=== PATIENT | female | born 1955 | race Caucasian/White ===

== ENCOUNTER → 2017-10-26 08:47 | Outpatient (CLI) | payer BC, SELFPAY | PROVIDERS: Family Provider Family Medicine; PCP Family Medicine; Visit Provider Family Medicine | DX: R69 Illness, unspecified (principal) ==

== ENCOUNTER → 2018-06-19 10:17 | Outpatient (CLI) | payer MEDICARE, OTHER, SELFPAY ==
[2018-06-19 09:47] VITALS: BMI 34.3
[2018-06-19 12:19] LABS: AST(SGOT) 23 U/L (15-37); Alanine Aminotransfer ALT/SGPT 37 U/L (13-56); Albumin, Serum 3.8 g/dL (3.2-5.0); Alkaline Phosphatase 53 U/L (45-117); Bilirubin, Direct 0.29 mg/dL (0.00-0.30); Cholesterol 134 mg/dL (200); Globulin 3.7 g/dL (2.2-4.2); High Density Lipoprotein 53 mg/dL; Protein, Total 7.5 g/dL (6.4-8.2); Triglycerides 183 mg/dL; Very Low Density Lipoprotein 37 mg/dL (5-40)
--- OUTSIDE RECORDS SUMMARY | 2018-08-05 05:15 | XMS RPT_ITS ---
:1955 External Reference #:[id number] Author Organization OHIP Care Team Providers Name Role Phone Renetta Russo Attending Unavailable Thien Baeza Referring Unavailable Renetta Russo Attending Unavailable Renetta Russo Referring Unavailable Thien Baeza Primary Care Unavailable Thien Baeza Attending Unavailable Thien Baeza Primary Care Unavailable Renetta Russo Attending Unavailable Thien Baeza Referring Unavailable Thien Baeza Primary Care Unavailable PROBLEMS PROBLEMS DATE TYPE CONDITION / CODE ATTENDING STATUS SOURCE 06/30/2018 Unknown I25.10 - Karan, Active Joshua Atherosclerotic heart Renetta Fonseca [facility] disease [facility] coronary artery Repository without angina pectoris / I25.10(ICD-10) 06/30/2018 Unknown I10 - Essential Karan, Active [place] (primary) Rneetta Fonseca [facility] hypertension / Hospital I10(ICD-10) Repository 06/30/2018 Unknown E78.00 - Pure Karan, Active [place] hypercholesterolemia, Renetta Fonseca [facility] unspecified / Hospital E78.00(ICD-10) Repository 12/30/2017 Unknown R40.0 - Somnolence / Russo, Active [place] R40.0(ICD-10) [facility] Repository 12/30/2017 Unknown R53.83 - Other Karan, Active Joshua fatigue / Renetta [facility] R53.83(ICD-10) Hospital Repository 12/30/2017 Unknown E78.5 - Karan, Active Joshua Hyperlipidemia, Renetta [facility] unspecified / Hospital E78.5(ICD-10) Repository PROCEDURES PROCEDURES No Procedure Records FoundRESULTS RESULTS LIVER PROFILE Collected: 06/19/2018 Status: F Source: [place] 10:29 AM [facility] REPOSITORY TYPE CODE TESTS RESULT OUT OF RANGE REFERENCE UNITS LAB L501.1500 6.4-8.2 g/dL Normal T PROT 7.5 LAB L501.1800 3.2-5.0 g/dL Normal ALB 3.8 LAB L501.1950 2.2-4.2 g/dL Normal GLOB 3.7 LAB L501.4100 15-37 U/L Normal AST 23 LAB L501.4305 45-117 U/L Normal ALK P 53 LAB L501.4405 13-56 U/L Normal ALT 37 LAB L501.4600 0.20-1.00 mg/dL High T BILI 1.90 LAB L501.4700 0.00-0.30 mg/dL Normal D BILI 0.29 Performed By: #### L500.3400, L500.4100 #### [facility] [address] [place], [address] LIPID PROFILE Collected: 06/19/2018 Status: F Source: [place] 10:29 [facility] REPOSITORY TYPE CODE TESTS RESULT OUT OF RANGE REFERENCE UNITS LAB L501.4900 200 mg/dL Normal CHOL 134 Result Comment: <200 mg/dL Desirable 200-240 mg/dL Borderline >240 mg/dL High Risk LAB L501.5000 mg/dL Normal TRIG 183 Result Comment: The drugs N-Acetylcysteine and Metamizole may falsely depress this assay. Serum Triglycerides Reference Interval Normal <150 mg/dL Borderline high 150 - 199 mg/dL High 200 - 499 mg/dL Very High > or = 500 mg/dL LAB L501.6400 mg/dL Normal HDL 53 Result Comment: The drugs N-Acetylcysteine and Metamizole may falsely depress this assay. Reference Range HDL <40 mg/dL Low HDL Cholesterol HDL >or= 60 mg/dL High HDL Cholesterol LAB L501.6500 0-130 mg/dL Normal LDL 44 LAB L501.6600 5-40 mg/dL Normal VLDL 37 Performed By: #### L500.3400, L500.4100 #### [facility] [address] [place], [address] CARDIOLOGY VISIT Observed: 06/19/2018 Status: F Source: [place] REPORT 10:14 AM [facility] REPOSITORY [facility] [address] [place] [address] OFFICE VISIT Date of Service: 06/19/18 MR#: [id number] Acct: [id number] Name: TERESE TIRADO Rep #: [id number] : 1955 Provider: Renetta Russo Age/Sex: 63/F Location: [facility] Status: Signed HPI HPI Details: TERESE TIRADO, is a 63 F who presents to the office today for a cardiovascular follow-up. In January 2017 she was noted to have a non-ST myocardial infarction and underwent bypass surgery at [facility]. She had an CONNER to the LAD, SVG to the diagonal branch 1, SVG Y graft to the OM1 and OM 2. In February 2017 she presented back to the hospital with unstable angina and underwent stenting of her mid right posterior lateral branch. She has retired in March. From a cardiac standpoint, patient is doing well. She does not have any chest discomfort/heaviness/tightness. Her exercise tolerance is stable for her age. She does not have any worsening symptoms of shortness of breath. She does not have any orthopnea. She denies PND. She does not have any symptoms of congestive heart failure. She does not have any palpitations that she is aware of. She does not have any lightheadedness or dizziness. She does not have any near-syncope or syncope. She does not have any lower extremity edema. She does not have any symptoms of claudication. Intake Vital Signs06/19/18 Height 5 ft 3 in 06/19/18 Weight: 194 lb 06/19/18 Body Mass Index (BMI) 34.3 06/19/18 Blood Pressure 134/72 H Intake Visit Reasons: 6 M FU Patient Service Technician Pst Required: No Accompanied by: None Is patient in pain?: No Allergies codeine Adverse Reaction (Verified 06/19/18 09:49) Other Medications Citalopram Hydrobromide [Citalopram HBr] 20 mg PO DAILY 02/23/17 [History Confirmed 06/19/18] Insulin Detemir [Levemir FlexPen] 15 units SQ DAILY 30 Days 02/26/17 [Rx Confirmed 06/19/18] Insulin Lispro [Humalog KwikPen] 5 units SQ ACHS 30 Days 02/26/17 [Rx Confirmed 06/19/18] aspirin 81 mg tablet,delayed release 81 mg PO DAILY@0800 #90 tab 04/08/18 [Rx Confirmed 06/19/18] atorvastatin 80 mg tablet 80 mg PO QHS #90 tab 04/08/18 [Rx Confirmed 06/19/18] clopidogrel 75 mg tablet 75 mg PO QDAY #90 tab 04/08/18 [Rx Confirmed 06/19/18] metoprolol tartrate 50 mg tablet 50 mg PO BID #180 tab 04/08/18 [Rx Confirmed 06/19/18] ramipril 2.5 mg capsule 2.5 mg PO DAILY #90 cap 04/08/18 [Rx Confirmed 06/19/18] magnesium oxide 400 mg capsule 400 mg PO DAILY cap 06/19/18 [History Confirmed 06/19/18] PFSH Medical History Chest pain, unspecified (Chronic) HTN (hypertension) (Chronic) HLD (hyperlipidemia) (Chronic) 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 (Chronic) Surgical History History of fusion of cervical spine (Resolved 1992) History of hysterectomy (Resolved 1991) History of knee replacement (Resolved 2005) Hx of CABG (Chronic) Family History Brother CAD (coronary artery disease) Brother , age 50 CAD (coronary artery disease) Myocardial infarction Social History Smoking Status: Never smoker alcohol intake: current alcohol intake frequency: holidays/special occasions only Alcohol type: wine substance use type: does not use caffeine: Yes Type: carbonated beverages Number of servings: 1 what type of physical activity do you participate in: swimming frequency: 1-2 times per week ROS Const Const: Negative for weakness, fatigue, fever(s) or headache(s) Eyes Eyes: Negative for blind spots, loss of peripheral vision or transient loss of vision ENT ENT: Negative for headache(s), dizziness, tinnitus or Nosebleed/epistaxis Cardio Chest Pain: No Palpitations: No Edema: None Muscle aches with walking: None Resp Respiratory: Negative for SOB with activity, SOB at rest, SOB orthopnea\SOB lying down or Cough GI GI: Negative nausea, vomiting, heartburn or vomiting blood/hematemesis : Negative for hematuria Musc Musc: Negative for muscle aches/ myalgia Neuro Neuro: Negative for weakness, headache(s), dizziness, near syncope, syncope, lightheadedness or orthostatic symptoms Aravind Hematologic/Lymphatic: Negative for easy bleeding Endo Endo: Negative for fatigue Cardiology Exam Const Appearance: cooperative, no acute distress and well developed Orientation: alert, awake and oriented x3 Head Head: normocephalic and atraumatic Mouth: moist mucous membranes Eyes General: appearance normal, both eyes and all related structures Conjunctivae: conjunctivae normal Pupils: PERRL EOM: EOM intact bilaterally Neck Neck: normal visual inspection, no lymphadenopathy and no JVD Carotids: Negative bruit Neck Mass: Negative Neck mass Chest Chest inspection: normal inspection of the chest, symmetric chest movement and midline sternotomy incision Auscultation: Bilateral: Clear to Auscultation Cardio Palpation: normal PMI Rate: regular rate Rhythm: regular rhythm Heart sounds: S1 normal and S2 normal; negative rub, gallop or murmur GI GI: normal to inspection, soft, no hepatosplenomegaly and bowel sounds present; negative tender Neuro General: alert, awake, oriented x3, CN's II-XI intact bilaterally and moves all extremities Extremities Pulses: Normal: Right Posterior Tibial Pulse, Left Posterior Tibial Pulse, Right Radial Pulse, Left Radial Pulse Lower Extremity Edema: None: Bilateral Psych Psychological: normal affect Assessment AND Plan 1. Atherosclerosis of [place]iiq coronary artery of [place] heart without angina pectoris I25.10 Plan Stable, from a cardiac standpoint patient does not have any symptoms of angina. We recommend that they continue with current aggressive medical management and risk factor modification. Orders Orders: 2. Essential hypertension I10 Plan Adequately controlled on current medications. Will not make any adjustments. Orders Orders: 3. Pure hypercholesterolemia E78.00 Plan Patient is due to have her lipids checked in the near future. Will adjust accordingly. Orders Orders: Plan Detail Additional Comments Thank you for allowing us to participate in patient's plan of care, if you have any questions please do not hesitate to call. This note was generated using a voice recognition system and there may be incorrect words, spelling or punctuation errors that were not noted when reviewing the office note prior to saving. Follow Up 6 Months (PFM) Coding Level of Care Code Off vis,est,level 3 Diagnoses Atherosclerosis of alutiiq coronary artery of al[place]ii[place] heart without angina pectoris I25.10 [place] vs. transplanted heart: [place]iiq heart Essential hypertension I10 Hypertension type: essential hypertension Pure hypercholesterolemia E78.00 Hyperlipidemia type: pure hypercholesterolemia Coding Level of Care Code Off vis,est,level 3 Diagnoses Atherosclerosis of [place]ii[place] coronary artery of [place] heart without angina pectoris I25.10 [place] vs. transplanted heart: [place] heart Essential hypertension I10 Hypertension type: essential hypertension Pure hypercholesterolemia E78.00 Hyperlipidemia type: pure hypercholesterolemia 06/19/18 1014 <Electronically signed by Renetta FORBES> Date Renetta FORBES Cosign Signature: Date (if applicable) CC: Thien Baeza MD CARDIOLOGY VISIT Observed: 01/03/2018 Status: F Source: [place] REPORT 4:13 PM [facility] REPOSITORY [place] [address] [place] [address] OFFICE VISIT Date of Service: 12/30/17 MR#: [id number] Acct: [id number] Name: TERESE TIRADO Rep #: [id number] : 1955 Provider: Renetta Russo Age/Sex: 62/F Location: [facility] Status: Signed HPI HPI Details: TERESE TIRADO, is a 62 F who presents to the office today for cardiovascular follow-up. In January 2017 she was noted to have a non-ST myocardial infarction and underwent bypass surgery at [facility]. She had an CONNER to the LAD, SVG to the diagonal branch 1, SVG Y graft to the OM1 and OM 2. In February 2017 she presented back to the hospital with unstable angina and underwent stenting of her mid right posterior lateral branch. Overall patient is to been doing very well. She did complete cardiac rehab. She does not have any chest discomfort, heaviness or tightness. She does not have any worsening shortness of breath. She does not have any lightheadedness or dizziness. She does not have any palpitations. She does not have any pain in her legs when she walks. She is finding that is very difficult to exercise when she gets home from work because of extreme fatigue. She does have daytime somnolence. She questions whether not she needs to have sleep study done. She is getting ready to retire in March 2018. STOP-BANG Assessment: 1. Do you snore? [n] 2. Are you frequently tired during the day? [y] 3. Have you been observed gasping or choking while asleep? [n] 4. Do you have high blood pressure? [y] 5. BMI - greater than 35kg/m2? [n] 6. Age - over 50 years old? [y] 7. Neck Circumference - greater than 37 cm for females or 40 cm for males? [n] 8. Gender - male? [n] Total STOP-BANG score = [3] which indicates [y] risk for obstructive sleep apnea (yes to 3 or more questions = high risk of sleep apnea). Intake Vital Signs12/30/17 Height 5 ft 3 in 12/30/17 Weight: 194 lb 12/30/17 Body Mass Index (BMI) 34.3 Intake Visit Reasons: 6 M FU Accompanied by: Is patient in pain?: No Allergies codeine Adverse Reaction (Verified 06/28/17 17:20) Other Medications Citalopram Hydrobromide [Citalopram HBr] 20 mg PO DAILY 02/23/17 [History Confirmed 12/30/17] Aspirin E.C. [Ecotrin] 81 mg PO DAILY@0800 tab 02/26/17 [Rx Confirmed 12/30/17] Insulin Detemir [Levemir FlexPen] 15 units SQ DAILY 30 Days 02/26/17 [Rx Confirmed 12/30/17] Insulin Lispro [Humalog KwikPen] 5 units SQ ACHS 30 Days 02/26/17 [Rx Confirmed 12/30/17] atorvastatin 80 mg tablet 80 mg PO QHS #90 tab 12/30/17 [Rx Confirmed 12/30/17] clopidogrel 75 mg tablet 75 mg PO QDAY #90 tab 12/30/17 [Rx Confirmed 12/30/17] metoprolol tartrate 50 mg tablet 50 mg PO BID #180 tab 12/30/17 [Rx Confirmed 12/30/17] ramipril 2.5 mg capsule 2.5 mg PO DAILY #90 cap 12/30/17 [Rx Confirmed 12/30/17] PFSH Medical History Chest pain, unspecified (Chronic) HTN (hypertension) (Chronic) HLD (hyperlipidemia) (Chronic) 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 (Chronic) Surgical History Hx of CABG (Chronic) Family History Brother CAD (coronary artery disease) Social History Smoking Status: Never smoker alcohol intake: current alcohol intake frequency: holidays/special occasions only Alcohol type: wine substance use type: does not use what type of physical activity do you participate in: swimming frequency: 1-2 times per week ROS Const Const: Positive for fatigue and daytime sleepiness; negative for weakness, fever(s) or headache(s) Eyes Eyes: Negative for blind spots, loss of peripheral vision or transient loss of vision ENT ENT: Negative for headache(s), dizziness, tinnitus or Nosebleed/epistaxis Cardio Chest Pain: No Palpitations: No Edema: None Muscle aches with walking: None Resp Respiratory: Negative for SOB with activity, SOB at rest, SOB orthopnea\SOB lying down or Cough GI GI: Negative nausea, vomiting, heartburn or vomiting blood/hematemesis : Negative for hematuria Musc Musc: Negative for muscle aches/ myalgia Neuro Neuro: Negative for weakness, headache(s), dizziness, near syncope, syncope, lightheadedness or orthostatic symptoms Aravind Hematologic/Lymphatic: Negative for easy bleeding Endo Endo: Positive for fatigue Cardiology Exam Const Appearance: cooperative, no acute distress and well developed Orientation: alert, awake and oriented x3 Head Head: normocephalic and atraumatic Mouth: moist mucous membranes Eyes General: appearance normal, both eyes and all related structures Conjunctivae: conjunctivae normal Pupils: PERRL EOM: EOM intact bilaterally Neck Neck: normal visual inspection, no lymphadenopathy and no JVD Carotids: Negative bruit Neck Mass: Negative Neck mass Chest Chest inspection: normal inspection of the chest, symmetric chest movement and midline sternotomy incision Auscultation: Bilateral: Clear to Auscultation Cardio Palpation: normal PMI Rate: regular rate Rhythm: regular rhythm Heart sounds: S1 normal and S2 normal; negative rub, gallop or murmur GI GI: normal to inspection, soft, no hepatosplenomegaly and bowel sounds present; negative tender Neuro General: alert, awake, oriented x3, CN's II-XI intact bilaterally and moves all extremities Extremities Pulses: Normal: Right Posterior Tibial Pulse, Left Posterior Tibial Pulse, Right Radial Pulse, Left Radial Pulse Lower Extremity Edema: None: Bilateral Psych Psychological: normal affect Supplemental Info Echocardiogram in 2017 demonstrates an estimated ejection fraction of 60%. Trivial mitral valve insufficiency. Mild tricuspid insufficiency. Moderate focal aortic valve calcification. Trivial pulmonic insufficiency. RVSP 24 mmHg. Assessment AND Plan 1. Atherosclerosis of alutiiq coronary artery of alutiiq heart without angina pectoris I25.10 LEIDY Vega Stable, from a cardiac standpoint patient does not have any symptoms of angina. We recommend that they continue with current aggressive medical management and risk factor modification. Orders Orders: 2. Essential hypertension I10 LEIDY Vega Adequately controlled on current medications. Will not make any adjustments. Orders Orders: 3. Pure hypercholesterolemia E78.00 LEIDY Vega Patient is due to have her lipids checked in the near future. Will adjust accordingly. 4. Daytime somnolence R40.0 LEIDY Vega Patient does complain of fatigue and daytime somnolence. Her stop bang score is 3. Would like to obtain a sleep study to further evaluate for underlying sleep apnea. Orders Orders: 5. Fatigue, unspecified type R53.83 LEIDY Vega Will obtain labs to further evaluate. Orders Orders: Plan Detail Other Orders Orders: Other Medications New: Discontinued: Additional Comments - LEIDY Haines The above patient was discussed with Dr. Joshua, he agrees with plan of care. Thank you for allowing us to participate in patient's plan of care, if you have any questions please do not hesitate to call. This note was generated using a voice recognition system and there may be incorrect words, spelling or punctuation errors that were not noted when reviewing the office note prior to saving. 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 transplanted heart: [place] heart Essential hypertension I10 Hypertension type: essential hypertension Pure hypercholesterolemia E78.00 Hyperlipidemia type: pure hypercholesterolemia Daytime somnolence R40.0 Fatigue, unspecified type R53.83 Fatigue type: unspecified Coding Level of Care Code Off vis,est,level 3 Diagnoses Atherosclerosis of al[place]iiq coronary artery of al[place] heart without angina pectoris I25.10 [place] vs. transplanted heart: [place] heart Essential hypertension I10 Hypertension type: essential hypertension Pure hypercholesterolemia E78.00 Hyperlipidemia type: pure hypercholesterolemia Daytime somnolence R40.0 Fatigue, unspecified type R53.83 Fatigue type: unspecified 12/31/17 1655 <Electronically signed by Renetta FORBES> Date Renetta FORBES 01/03/18 1613<Electronically signed by Ramiro Joshua MD> Cosigner Signature: Date (if applicable) Ramiro Joshua MD CC: Thien Baeza MD ALLERGIES ALLERGIES DATE TYPE / CODE NAME / CODE REACTION SEVERITY SOURCE 06/19/2018 Drug codeine/F006 Other Unknown [facility] Allergy/4160 [id number](RXNOR [facility] 58258(SNOMED M) Repository CT) ENCOUNTERS ENCOUNTERS ADMIT/DISCHARGE ACCOUNT ADMITTING ENCOUNTER LOCATION SOURCE NUMBER CLASS 06/19/2018 [id number] Ambulatory [place] [facility] ing:LAB Repository 06/19/2018/ [id number] Ambulatory BMSBuilding:B [place] [address] [facility] Repository 12/30/2017/ [id number] Ambulatory BMSBuilding:B [place] [address] [facility] Repository 10/26/2017 [id number] Ambulatory [place] Joshua 4 [facility] ing:LAB Repository PAYERS PAYERS ENCOUNTER GUARANTOR PAYER SUBSCRIBER SOURCE 06/19/2018 TERESE D Primary TERESE D [place] [id number] APPLE Insurance:MEDICARE MILLERDOB: [facility] PART A [facility] [id number] Repository [id number]: 330 [id number] [phone] () Date:2018-06-19 06/19/2018 Secondary TERESE D Joshua Insurance:AARPPolicy MILLERDOB: [facility] Number: [id number] Hospital [id number] Repository Date:[id number], [place] [address]WT: 06/19/2018 Tertiary NOT GIVENUNK [place] Insurance:SELF PAY [facility]: Effective Repository Date:2018-06-19 06/19/2018 TERESE D Primary TERESE D [place] [id number] APPLE Insurance:MEDICARE MILLERDOB: [facility] PART A [facility] [id number] Number: Repository [id number]: 330 [id number] [phone] () Date:2017-12-30 06/19/2018 Secondary TERESE D [place] Insurance:AARPPolicy MILLERDOB: [facility] Number: [id number] Hospital [id number] Repository Date:[id number], [place] [address]FZ: 06/19/2018 Tertiary NOT GIVENUNK Joshua Insurance:SELF PAY [facility] Number: Effective Repository Date:2018-06-19 12/30/2017 TERESE D Primary TERESE D Joshua [id number] APPLE Insurance:ANTHEMPolic MILLERDOB: Community [address] Number: [id number], [place] [id number] Repository [address]Rip: (330) Date:0407-08-70[phone] () [id number] [place] [address]KR: 12/30/2017 Secondary NOT GIVENUNK Joshua Insurance:SELF PAY [facility] Number: Effective Repository Date:2017-12-30 10/26/2017 TERESE D Primary TERESE D Joshua [id number] APPLE Insurance:ANTHEMPolic MILLERDOB: Community [address] Number: [id number], [place] [id number] Repository 118[address]Nvk: Date:4562-70-11[phone] [id number], [place] -7 () [address]BA: 10/26/2017 Secondary NOT GIVENUNK [place] Insurance:SELF PAY [facility] Number: Effective Repository Date:2017-10-26
== END ==
PROVIDERS: Family Provider Family Medicine; PCP Family Medicine; Referring Provider Physician Assistant Medical; Visit Provider Physician Assistant Medical
DX: I25.10 Atherosclerotic heart disease of native coronary artery without angina pectoris (principal); I10 Essential (primary) hypertension; E78.00 Pure hypercholesterolemia, unspecified
CPT/HCPCS: 36415; 80061; 80076

== ENCOUNTER 2019-07-15 08:20 | Day surgery (SDC) | payer MEDICARE, SELFPAY ==
[2019-06-26 08:32] VITALS: BMI 34.0
--- NOTE | 2019-06-26 08:44 | HP_ITS ---
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 Is patient in pain?: No Allergies codeine Adverse Reaction (Verified 06/26/19 08:31) Other Medications Citalopram Hydrobromide [Citalopram HBr] 20 mg PO DAILY 02/23/17 [History Confirmed 06/26/19] Insulin Detemir [Levemir FlexPen] 15 units SQ DAILY 30 Days 02/26/17 [Rx Confirmed 06/26/19] Insulin Lispro [Humalog KwikPen] 5 units SQ ACHS 30 Days 02/26/17 [Rx Confirmed 06/26/19] aspirin 81 mg tablet,delayed release 81 mg PO DAILY@0800 #90 tab 04/08/18 [Rx Confirmed 06/26/19] atorvastatin 80 mg tablet 80 mg PO QHS #90 tab 04/08/18 [Rx Confirmed 06/26/19] clopidogrel 75 mg tablet 75 mg PO QDAY #90 tab 04/08/18 [Rx Confirmed 06/26/19] metoprolol tartrate 50 mg tablet 50 mg PO BID #180 tab 04/08/18 [Rx Confirmed 06/26/19] ramipril 2.5 mg capsule 2.5 mg PO DAILY #90 cap 04/08/18 [Rx Confirmed 06/26/19] [facility] Medical History Type 2 diabetes mellitus (Chronic) GERD (gastroesophageal reflux disease) (Chronic) History of non-ST elevation myocardial infarction (NSTEMI) (Acute) Pure hypercholesterolemia (Chronic) Presence of stent in coronary artery (Chronic ~02/23/17) Essential hypertension (Chronic) Chest pain, unspecified (Chronic) Atherosclerotic heart disease of [place] coronary artery without angina pectoris (Chronic) Surgical History History of coronary artery bypass surgery (Chronic ~02/05/17) Presence of coronary angioplasty implant and graft (Chronic ~02/23/17) History of fusion of cervical spine (Resolved ~1992) History of hysterectomy (Resolved ~1991) History of knee replacement (Resolved ~2005) Family History (Updated 06/26/19 @ 08:28 by Bibiana Perez) Brother CAD (coronary artery disease) Diabetes High cholesterol Brother , age 50 CAD (coronary artery disease) Myocardial infarction Father CAD (coronary artery disease) Aunt CAD (coronary artery disease) Mother Hypertension Social History (Updated 06/26/19 @ 08:44 by Nicole Fletcher MD) alcohol intake: current alcohol intake frequency: holidays/special occasions only Alcohol type: wine substance use type: does not use caffeine: Yes Type: carbonated beverages Number of servings: 1 what type of physical activity do you participate in: swimming frequency: 1-2 times per week HPI HPI HPI: TERESE TIRADO, is a 64 F who presents to the office today for HPI HPI Surgical H&P: Yes HPI: TERESE TIRADO, is a 64 F who presents to the office today for screening colonoscopy. Patient states she has bowel movements daily denies any blood denies any family history of colon cancer denies any previous colonoscopy. Patient did have a CABG as well as a stent placed in 2017 currently on aspirin Plavix. Patient states she has reflux maybe once or twice a month otherwise denies any abdominal pain. ROS General General: No weight change, fatigue, colon cancer, breast cancer or weakness HEENT HEENT: No difficulty swallowing, eye injury, eye surgery, swollen glands or hoarseness Endo Endocrine: Yes diabetes mellitus; no thyroid disease, thyroid cancer, Hair loss, heat intolerance or cold intolerance Skin Skin: No rash or changing moles Breast Breast: No left breast lump, right breast lump, nipple discharge, breast pain, abnormal mammogram, abnormal US or breast enlargement Musc Musculoskeletal: Yes arthritis; no back problems, rheumatoid arthritis, gout or joint pain Cardio Cardiovascular: Yes high blood pressure, heart attack and heart stent; no murmur, pacemaker, heart disease, atrial fibrillation, palpitations, shortness of breat with exertion or chest pain Psych Psychiatric: Yes anxiety; no depression or hearing voices Resp Respiratory: No shortness of breath, No sleep apnea, No cough, No COPD, No asthma, No emphysema, No wheezing Gastro Gastrointestinal: No abdominal pain, No nausea or vomiting, No diarrhea, No constipation, No blood in stool, No acid reflux, No hemorrhoids, No ulcers, No gallbladder problem, No black,tarry stools Aravind Hematologic: Yes blood thinners, No blood disorders, No bleeding, No anemia, No blood clots Neuro Neurologic: No system reviewed and no additional complaints, except as docu, No as per HPI, No abnormal walking, No abnormal hearing, No abnormal movements, No abnormal speech, No behavioral changes, No burning sensations, No confusion, No seizure-like activity, No unsteadiness, No dizziness, No localized weakness, No frequent falls, No headache(s), No lack of coordination, No loss of vision, No memory loss, No numbness, No other visual disturbances, No radiating pain, No restless legs, No sensory deficit, No fainting, No tingling, No tremor(s), No weakness, No other Exam Const General: cooperative, comfortable, no acute distress Orientation: oriented x3 Chest Breast Palpation: No nipple discharge Resp Effort & Inspection: normal respiratory effort Cardio Rate: regular rate Heart Sounds: no murmurs GI Inspection: non-distended Palpation: soft, no guarding, nontender Assessment & Plan Problems 1. Encounter for screening for malignant neoplasm of colon Z12.11 2. History of coronary artery bypass surgery Z95.1 CABG x4; CONNER to LAD, BRIAN to OM2, (Y fraft off SVG-OM1), SVG to Dg 02/05/2017 3. History of non-ST elevation myocardial infarction (NSTEMI) I25.2 Plan Will discuss with Dr. Tan's office patient able to come off the Plavix prior to the colonoscopy if so we will hold for 5 days and continue aspirin. Otherwise did discuss with patient we could do it on aspirin and Plavix but should be at slightly increased risk of bleeding. Patient also talk with her control valve technician about her diabetic medication for the day of the prep. I have discussed the above with the patient. I have offered the patient colonoscopy for evaluation. I have explained the risks/benefits of the procedure and described the procedure. I have discussed the risks with the patient, including but not limited to: infection, bleeding, perforation of the GI tract requiring emergency surgery, inability to complete the procedure, injury to any internal organs, complications of anesthesia, etc. - the patient understands and agrees to proceed. I have answered all the patient's questions to the patient's satisfaction and the patient has no further questions. The patient has been given instructions for the colon cleansing preparation. One day of clears, MiraLAX to collect split prep. Nicole Fletcher M.D. Pager: [phone] [facility] [address] [place] [address], [address] [place] [address] Office: [phone] Plan Detail Follow Up We will schedule colonoscopy Coding Level of Care Code Off vis,new,level 3 Diagnoses Encounter for screening for malignant neoplasm of colon Z12.11 History of coronary artery bypass surgery Z95.1 History of non-ST elevation myocardial infarction (NSTEMI) I25.2 06/26/19 0844 <Electronically signed by Nicole Jones am, MD> Date _ Nicole Fletcher MD I have re-examined the patient. There are no clinical changes since date of exam.
[2019-07-15] VITALS (7 sets, daily range): BP systolic 106–148; BP diastolic 61–81; PULSE 66–96; RESP 16; TEMP 36.1–37.2; O2SAT 67–99; BMI 34.4
[2019-07-15] MEDS: Lactated Ringers 1,000 ML 100 ML IV (09:03)
[2019-07-15 09:10] LABS: Bedside Glucose 229 mg/dL (70-110)
--- NOTE | 2019-07-15 09:45 | COLBX_PTH ---
PATIENT: TERESE TIRADO LOC: EN U#:[id number] AGE/SX: 64/F ROOM: RE07/15/[address]: Dr. Nicole Fletcher MD : 1955 BED: DIS: 07/15/2019 SPEC #: [id number] RECD: 07/15/19 11:39 STATUS: JENNY ACOSTA #: [id number] MANDA: 07/15/19 09:[address]: Nicole Fletcher DEPT: SURGICAL PATHOLOGY RECD BY: Mohan Moss ENTERED: 07/15/19 13:51 SP TYPE: COLON BX OTHR DR: Dr. Thien Baeza MD Tissues: A - Cecum, NOS B - Descending colon Procedures: Surgery Specimen Level IV HEADER OPERATION: Colonoscopy (MAC) PRE-OP DIAGNOSIS: Screening TISSUE SUBMITTED: A. Cecal polyp biopsy, B. Descending colon polyp biopsy MICROSCOPIC DIAGNOSIS A. Cecal polyp, biopsy: Tubular adenoma. B. Descending colon polyp, biopsy: Tubular adenoma. AM:stefan 07/16/19 MICROSCOPIC DESCRIPTION Slides are reviewed. GROSS DESCRIPTION A - Received in fixative is one container labeled with the patient's name and designated cecal polyp biopsy. The specimen consists of multiple irregular fragments of light argueta soft tissue that in aggregate measure 1 x 0.2 x 0.1 cm. The specimen is totally submitted in one cassette. B - Received in fixative is one container labeled with the patient's name and designated descending colon polyp. The specimen consists of two irregular fragments of light argueta soft tissue that in aggregate measure 0.6 x 0.3 x 0.1 cm. The specimen is totally submitted in one cassette. / SJ:stefan 07/15/19 TC:5 CPT: 39481 x2
--- NOTE | 2019-07-18 12:39 | OP.COLON_ITS ---
Patient Name: Dimple Mckeon Procedure Date: 07/15/2019 9:39 AM Date of : 1955 Age: 64 Procedure: Colonoscopy Indications: Screening for colorectal malignant neoplasm Providers: Nicole Fletcher MD Referring MD: Thien Baeza MD Medicines: Monitored Anesthesia Care Patient Profile: This is a 64 year old female. Last Colonoscopy: none. The patient's first colonoscopy is today. Complications: No immediate complications. Procedure: Pre-Anesthesia Assessment: - Prior to the procedure, a History and Physical was performed, and patient medications and allergies were reviewed. The patient's tolerance of previous anesthesia was also reviewed. The risks and benefits of the procedure and the sedation options and risks were discussed with the patient. All questions were answered, and informed consent was obtained. Prior Anticoagulants: The patient has taken Plavix (clopidogrel), last dose was 5 days prior to procedure. ASA Grade Assessment: III - A patient with severe systemic disease. After reviewing the risks and benefits, the patient was deemed in satisfactory condition to undergo the procedure. After I obtained informed consent, the scope was passed under direct vision. Throughout the procedure, the patient's blood pressure, pulse, and oxygen saturations were monitored continuously. The pediatric colonoscope was introduced through the anus and advanced to the cecum, identified by the appendiceal orifice, ileocecal valve and palpation. The colonoscopy was performed without difficulty. The patient tolerated the procedure well. The quality of the bowel preparation was good. Scope In: 9:57:00 AM Scope Withdrawal Time 0 hours 12 minutes 9 seconds Scope Out: 10:18:40 AM Total Procedure Duration Time 0 hours 21 minutes 40 seconds Findings: The perianal and digital rectal examinations were normal. Three sessile polyps were found in the descending colon and cecum. The polyps were less than 5 mm in size. These polyps were removed with a cold biopsy forceps. Resection and retrieval were complete. Impression: - Three less than 5 mm polyps in the descending colon and in the cecum, removed with a cold biopsy forceps. Resected and retrieved. Recommendation: - Discharge patient to home. - Resume previous diet. - Continue present medications. - Await pathology results. - Repeat colonoscopy in 5 years for surveillance based on pathology results. Procedure Code(s): --- Professional --- 62540, PT, Colonoscopy, flexible; with biopsy, single or multiple Diagnosis Code(s): --- Professional --- Z12.11, Encounter for screening for malignant neoplasm of colon D12.4, Benign neoplasm of descending colon D12.0, Benign neoplasm of cecum CPT copyright 2017 [employer] [place] [employer]. All rights reserved. The codes documented in this report are preliminary and upon latent fingerprint examiner review may be revised to meet current compliance requirements. MD Nicole Hernandez MD 07/15/2019 10:31:58 AM This report has been signed electronically. Number of Addenda: 0 Note Initiated On: 07/15/2019 9:39 AM
== END 2019-07-15 11:03 | disposition home or self-care (01) ==
LOC: EN 08:22 → AC 08:23
PROVIDERS: Family Provider Family Medicine; PCP Family Medicine; Referring Provider Family Medicine; Visit Provider Surgery
PROC: 0DJD8ZZ Inspection of Lower Intestinal Tract, Via Natural or Artificial Opening Endoscopic (ICD-10-PCS; CPT 45378; principal; 2019-07-15 09:40)
DX: Z12.11 Encounter for screening for malignant neoplasm of colon (principal); D12.0 Benign neoplasm of cecum; D12.4 Benign neoplasm of descending colon; I25.10 Atherosclerotic heart disease of native coronary artery without angina pectoris; I25.2 Old myocardial infarction; I10 Essential (primary) hypertension; E78.00 Pure hypercholesterolemia, unspecified; E11.9 Type 2 diabetes mellitus without complications; F32.9 Major depressive disorder, single episode, unspecified; F41.9 Anxiety disorder, unspecified; Z95.5 Presence of coronary angioplasty implant and graft; Z79.4 Long term (current) use of insulin; Z95.1 Presence of aortocoronary bypass graft; Z79.82 Long term (current) use of aspirin; Z79.02 Long term (current) use of antithrombotics/antiplatelets
CPT/HCPCS: 45380; 82962; 88305; J7120; J2405

== ENCOUNTER → 2020-06-29 08:57 | Outpatient (CLI) | payer MEDICARE, SELFPAY ==
[2019-12-09 11:12] VITALS: BMI 34.3
[2020-06-29 11:08] LABS: Hemoglobin A1c 10.9 % (3.8-5.6)
[2020-06-29 11:12] LABS: Microalbumin,Random Urine 12.2 mg/L (NO RANGE EST.); Microalbumin:Creatinine Ratio 9.2 mg/g CRE (<30 mg/g CRE)
[2020-06-29 11:17] LABS: Anion Gap 10 (5-15); BUN 12 mg/dL (7-18); BUN/Creat Ratio 12.9 RATIO (10-20); Chloride 106 mmol/L (98-107); Cholesterol 196 mg/dL (200); Creatinine, Serum 0.93 mg/dL (0.55-1.02); EST Glomerular Filtration Rate 64 mL/min (>60); Est Glom Filt Rate - Afr Amer 77 mL/min (>60); Glucose 286 mg/dL (74-106); High Density Lipoprotein 52 mg/dL; Potassium 4.2 mmol/L (3.5-5.1); Sodium Level 137 mmol/L (136-145); Triglycerides 348 mg/dL; Very Low Density Lipoprotein 70 mg/dL (5-40)
== END ==
PROVIDERS: PCP Family Medicine; Referring Provider Family Medicine; Visit Provider Family Medicine
DX: E11.9 Type 2 diabetes mellitus without complications (principal)
CPT/HCPCS: 36415; 80048; 80061; 82043; 82570; 83036

== ENCOUNTER → 2021-02-13 10:56 | Outpatient (CLI) | payer MEDICARE, SELFPAY ==
[2021-02-02 10:27] VITALS: BMI 36.1
[2021-02-13 12:32] LABS: Hemoglobin A1c 10.8 % (3.8-5.6)
[2021-02-13 12:41] LABS: Anion Gap 7 (5-15); BUN 15 mg/dL (7-18); BUN/Creat Ratio 17.2 RATIO (10-20); Calcium,Total 9.1 mg/dL (8.5-10.1); Chloride 108 mmol/L (98-107); Cholesterol 127 mg/dL (200); Creatinine, Serum 0.87 mg/dL (0.55-1.02); EST Glomerular Filtration Rate 69 mL/min (>60); Est Glom Filt Rate - Afr Amer 83 mL/min (>60); Glucose 210 mg/dL (74-106); High Density Lipoprotein 41 mg/dL; Potassium 4.1 mmol/L (3.5-5.1); Sodium Level 137 mmol/L (136-145); Triglycerides 236 mg/dL; Very Low Density Lipoprotein 47 mg/dL (5-40)
[2021-02-13 13:00] LABS: Creatinine, Urine (random) < 13.00 mg/dL (NO RANGE EST.); Microalbumin,Random Urine < 5.0 mg/L (NO RANGE EST.)
== END ==
PROVIDERS: PCP Family Medicine; Referring Provider Family Medicine; Visit Provider Family Medicine
DX: E11.9 Type 2 diabetes mellitus without complications (principal)
CPT/HCPCS: 36415; 80048; 80061; 82043; 82570; 83036

== ENCOUNTER → 2021-03-02 05:48 | Outpatient (CLI) | payer MEDICARE, SELFPAY ==
[2021-02-02 10:27] VITALS: BMI 36.1
--- NOTE | 2021-03-02 18:00 | STRESSREP_ITS ---
Stress Test Report Date: 03-02-2021 Procedure: Exercise tolerance test/imaging study Indications: CAD; non-ST segment elevation TN; status post PCI; status post CABG Consent: Per the patient Procedure: The patient exercised on a Rob protocol for 6 minutes completing Stage II achieving a peak heart rate of 150 bpm (98% predicted maximal heart rate) with a peak blood pressure 200/64 mmHg and a peak MET capacity of 7 METs. The baseline ECG demonstrated sinus rhythm; nonspecific T wave abnormality. The peak exercise ECG demonstrated no obvious ECG changes. There was a rare PVC during recovery. The functional capacity was considered average. There was no complaint of chest discomfort during exercise or recovery. The examination was discontinued secondary to dyspnea. Impression: 1. Technically adequate (percent predicted maximal heart rate greater than 85%) exercise tolerance test 2. Peak exercise ECG with no obvious ECG changes 3. There was a rare PVC during recovery 4. Nuclear images pending Myocardial perfusion imaging study: Technique: The patient was injected with 11.1 mCi of technetium 99m Cardiolite and subsequently rest SPECT Cardiolite nuclear imaging was obtained in the horizontal long, vertical long, and short axis views. The patient exercised on a Rob protocol for 6 minutes completing Stage II achieving a peak heart rate of 150 bpm (98% predicted maximal heart rate) with a peak blood pressure 200/64 mmHg and a peak MET capacity of 7 METs. The patient was injected with 33.0 mCi of technetium 99m Cardiolite and subsequently stress SPECT Cardiolite nuclear imaging was obtained in the horizontal long, vertical long, and short axis views. A gated Cardiolite study at peak stress was obtained. Interpretation: Rest and stress SPECT Cardiolite nuclear imaging status post realignment, normalization, and attenuation correction, demonstrates the appearance at rest of an area of diminished myocardial perfusion/tracer uptake in portions of the mid to distal anterior and anteroapical segments which status post stress appears to improve and/or normalize.. There is end systolic thickening and brightening. The gated Cardiolite study demonstrates myocardial thickening and inward wall motion. The reported LVEF is 79%. Impression: 1. Rest and stress SPECT Cardiolite nuclear imaging demonstrate resting m yocardial perfusion changes which appear to improve/normalize following stress appearing compatible with shifting soft tissue attenuation/artifact with no myocardial perfusion changes considered diagnostic for associated stress-induced myocardial ischemia. 2. The gated Cardiolite study reports an LVEF of 79%. This note was generated with [employer] software. It may contain incorrect words, spelling, and punctuation that were not noted in checking the note before signing.
== END ==
PROVIDERS: PCP Family Medicine; Referring Provider Physician Assistant Medical; Visit Provider Physician Assistant Medical
DX: I25.10 Atherosclerotic heart disease of native coronary artery without angina pectoris (principal); I10 Essential (primary) hypertension; E78.00 Pure hypercholesterolemia, unspecified; R53.83 Other fatigue
CPT/HCPCS: 78452; 93017; A9500; A4216

== ENCOUNTER → 2022-05-21 | Outpatient (CLI) | payer BC, SELFPAY ==
--- NOTE | 2022-05-21 09:01 | US_ITS ---
STUDY: ULTRASOUND BREAST - LEFT REASON FOR EXAM: Female, 67 years old. Abnormal screening mammogram. TECHNIQUE: Axial and longitudinal images of the LEFT breast were performed with a high resolution ultrasound transducer. # OF IMAGES: 13 COMPARISON: Comparison is made with prior mammogram done earlier today. FINDINGS: LEFT Breast: The upper aspect of the left breast was examined with ultrasound. There is a 2 mm x 2 mm x 2 mm cyst at the 12 o''clock position of the breast at 3 cm from nipple. US/Breast Limited Unilateral IMPRESSION: 2 mm x 2 mm x 2 mm cyst at the 12 o''clock position of the breast at 3 cm some the nipple. ASSESSMENT CATEGORY: BIRADS Category 2: Benign. A letter regarding these results will be sent to the patient by the facility within 30 days. Electronically Signed: Tj Vela MD at 14:25 EST ,
--- NOTE | 2022-05-21 09:01 | BI_ITS ---
MAMMOGRAPHY - BILATERAL DIAGNOSTIC REASON FOR EXAM: Female, 67 years old. Pea-sized lump beneath the skin and the upper central portion of the left breast. PERTINENT HISTORY: Non-contributory. Stable chronic bilateral nipple inversion. TECHNIQUE: Digital bilateral breast kalin (3D mammographic acquisition) in the CC and MLO projections. 2-D mediolateral oblique (MLO) and craniocaudad (CC) views of both breasts were obtained. CAD: Full Field Digital Mammography with Computer Added Detection was performed. COMPARISON: Comparison is made with prior study 03/27/2017 and 10/07/2014. FINDINGS: Breast Composition: The breasts are almost entirely fatty. There are no dominant masses or suspicious calcifications. No other significant abnormalities are identified. There has been no significant change since the prior study. BI/DIAG MAMM W/CAD, BILAT IMPRESSION: Stable bilateral diagnostic mammogram. With the patient''s history of a palpable lump, correlation with targeted ultrasound is recommended. ASSESSMENT CATEGORY: BIRADS Category 0: Incomplete. Need additional imaging evaluation. A letter regarding these results will be sent to the patient by the facility within 30 days. Approximately 10% of breast cancers are not detected by mammography. A normal mammogram should not delay biopsy of a clinically suspicious abnormality. Electronically Signed: Tj Vela MD at 10:18 EST ,
== END | disposition home or self-care (01) ==
LOC: OPBI 08:57
PROVIDERS: PCP Family Medicine; Referring Provider Family Medicine; Visit Provider Family Medicine
DX: N60.09 Solitary cyst of unspecified breast (principal); R92.8 Other abnormal and inconclusive findings on diagnostic imaging of breast
CPT/HCPCS: 76642; 77062; 77066; G0279

== ENCOUNTER → 2023-02-07 | Outpatient (CLI) | payer MEDICARE, SELFPAY ==
--- NOTE | 2023-02-07 09:00 | RAD_ITS ---
EXAM: XR RIGHT SHOULDER COMPLETE, 2 OR MORE VIEWS CLINICAL INDICATION: Right shoulder injury TECHNIQUE: Two or more views of the right shoulder. COMPARISON: Chest radiograph and chest CTA from February 23, 2017 FINDINGS: BONES/JOINTS: Mildly prominent osteophyte projecting from the inferior surface of the acromion is similar to prior chest radiograph in 2017. No shoulder dislocation, fracture or evidence of joint effusion. Mild hypertrophic change at the inferior margin of the glenoid frontal view. No sclerotic or destructive changes observed. SOFT TISSUES: Unremarkable. No soft tissue swelling or gas. No radiopaque foreign body. RAD/Shoulder min 2 Views IMPRESSION: No acute abnormality. Chronic and degenerative changes. Electronically Signed: Phyllis Medina MD at 7:38 EDT ,
== END | disposition home or self-care (01) ==
LOC: MTRAD 08:56
PROVIDERS: PCP Family Medicine; Visit Provider Family Medicine
DX: S49.91XA Unspecified injury of right shoulder and upper arm, initial encounter (principal); X58.XXXA Exposure to other specified factors, initial encounter
CPT/HCPCS: 73030

== ENCOUNTER → 2023-02-12 | Outpatient (CLI) | payer MEDICARE, SELFPAY ==
--- NOTE | 2023-02-12 14:43 | NEURO ---
NCS and/or EMG Patient Report Ordering Doctor: Thien Baeza DATE OF SERVICE: 02/12/23 Findings: Nerve conduction studies were performed in the right and left upper extremities. The right median motor study recording the abductor pollicis brevis showed a borderline amplitude, prolonged distal latency and slowed conduction velocity. The right ulnar motor study recording the abductor digiti minimi showed a normal amplitude, normal distal latency and normal conduction velocity. No conduction block or focal slowing was present across the elbow. The right median sensory response recording digit two showed a reduced amplitude, prolonged latency and markedly slowed conduction velocity. The right ulnar sensory response recording digit five showed a normal amplitude, latency and conduction velocity. The right radial sensory response recording over the extensor snuff box showed a normal amplitude, latency and conduction velocity. Needle EMG of the right upper extremity muscles was performed. and cervical paraspinals were not sampled as the patient was on anticoagulation and had a history of prior neck surgery. No denervation was seen in any muscle, though ton fasciculations were seen in the abductor pollicis brevis. Motor units in the abductor pollicis brevis were large amplitude, long duration with decreased recruitment. All other motor unit morphology, activation and recruitment patterns were normal. Impression: This is an abnormal study. There is electrophysiologic evidence of median neuropathy across the right wrist. The pathophysiology is predominantly demyelination, though there was evidence of secondary axonal loss. These findings are compatible with the clinical diagnosis of carpal tunnel syndrome. In addition, there is no electrophysiologic evidence of cervical radiculopathy, brachial plexopathy or other entrapment neuropathy in the right upper extremity. Bradly Varela D.O. Multi Select Codes Neurology Neurology Interp Codes: 62568-66 Musc test done w/n test comp (interp) and 37568-[address] [facility] cnd tst 5-6 studies (interp)
== END | disposition home or self-care (01) ==
LOC: PSN 14:02
PROVIDERS: PCP Family Medicine; Referring Provider Family Medicine; Visit Provider Family Medicine
DX: G56.01 Carpal tunnel syndrome, right upper limb (principal)
CPT/HCPCS: 95886; 95909

== ENCOUNTER → 2023-05-20 | Outpatient (CLI) | payer MEDICARE, SELFPAY ==
[2023-05-20 13:05] LABS: Hemoglobin A1c 9.5 % (3.8-5.6)
== END | disposition home or self-care (01) ==
LOC: MTLAB 10:01
PROVIDERS: PCP Family Medicine; Referring Provider Physician Assistant Surgical; Visit Provider Physician Assistant Surgical
DX: Z01.818 Encounter for other preprocedural examination (principal); E11.9 Type 2 diabetes mellitus without complications
CPT/HCPCS: 36415; 83036

== ENCOUNTER → 2023-09-23 | Outpatient (CLI) | payer MEDICARE, SELFPAY ==
[2023-09-23 11:24] LABS: Absolute Lymphocyte Count 3.38 X10^3/uL (0.83-4.51); Absolute Neutrophil Count 2.8 X10^3/uL (2.0-7.7); Basophil# 0.06 X10^3/uL; Basophil% 0.9 % (0-1); Eosinophil# 0.11 X10^3/uL; Eosinophils% 1.6 % (0-5); Hematocrit 42.2 % (37-47); Lymphocyte # 3.38 X10^3/ul (0.83-4.51); Lymphocyte % 48.1 % (19-41); Mean Corp Hgb Conc 33.2 g/dL (32-36); Mean Corpuscular Hgb 30.1 pg (27.0-32.0); Mean Corpuscular Volume 90.8 fL (81-99); Mean Platelet Vol. 10.9 fl (6.2-12.0); NRBC Flagged by Analyzer 0 % (0-5); Neutrophil # 2.76 X10^3/uL (2.7-7.7); Neutrophil % 39.3 % (47-70); Platelet Count 206 K/mm3 (150-450); RBC Distribution Width CV 13.3 % (11.6-14.6); RBC Distribution Width SD 44.1 fl (35.1-43.9); Red Blood Count 4.65 M/mm3 (4.2-5.4)
[2023-09-23 11:47] LABS: ALB/GLOB Ratio 0.9 RATIO (0.9-2.4); AST(SGOT) 20 U/L (15-37); Alanine Aminotransfer ALT/SGPT 37 U/L (13-56); Albumin, Serum 3.4 g/dL (3.2-5.0); Alkaline Phosphatase 61 U/L (45-117); Anion Gap 5 (5-15); BUN 14 mg/dL (7-18); BUN/Creat Ratio 14.3 RATIO (10-20); Calcium,Total 9.1 mg/dL (8.5-10.1); Chloride 105 mmol/L (98-107); Cholesterol 169 mg/dL (200); Creatinine, Serum 0.98 mg/dL (0.55-1.02); EST Glomerular Filtration Rate 60 mL/min (>60); Est Glom Filt Rate - Afr Amer 72 mL/min (>60); Globulin 3.7 g/dL (2.2-4.2); Glucose 286 mg/dL (74-106); High Density Lipoprotein 60 mg/dL; Potassium 4.5 mmol/L (3.5-5.1); Protein, Total 7.1 g/dL (6.4-8.2); Sodium Level 136 mmol/L (136-145); Triglycerides 243 mg/dL; Very Low Density Lipoprotein 49 mg/dL (5-40)
== END | disposition home or self-care (01) ==
PROVIDERS: PCP Family Medicine; Referring Provider Physician Assistant Medical; Visit Provider Physician Assistant Medical
DX: I25.10 Atherosclerotic heart disease of native coronary artery without angina pectoris (principal); E78.00 Pure hypercholesterolemia, unspecified
CPT/HCPCS: 36415; 80053; 80061; 85025

== ENCOUNTER 2024-02-06 12:04 | Inpatient (IN) | payer MEDICARE, SELFPAY ==
[2024-02-06] VITALS (26 sets, daily range): BP systolic 107–176; BP diastolic 48–95; PULSE 60–75; RESP 7–20; TEMP 36.3–36.8; O2SAT 93–98; BMI 35.0; BMI 32.8
--- NOTE | 2024-02-06 12:20 | ED.RN ---
dr thompson at beside. pt diaphoretic, heart rate dropped down to 20's for several seconds. returned to nsr. defib. cart in room.
--- NOTE | 2024-02-06 12:29 | EKG12_ITS ---
Test Reason : SYNCOPE Blood Pressure : / mmHG Vent. Rate : 065 BPM Atrial Rate : 065 BPM P-R Int : 190 ms QRS Dur : 090 ms QT Int : 450 ms P-R-T Axes : 033 005 027 degrees QTc Int : 468 ms Normal sinus rhythm RSR' or QR pattern in V1 suggests right ventricular conduction delay Nonspecific T wave abnormality Abnormal ECG Confirmed by MICHAEL MARTINEZ, PATRICIA ([id number]), managing editor ANGEL RIOS ([id number]) on 02/07/2024 9:26:42 AM Referred By: TB Confirmed By:PATRIICA RODRIGUEZ MD
--- NOTE | 2024-02-06 12:29 | CT_ITS ---
We are attempting to reach an attending provider to discuss findings. An addendum with communication details will be sent when the communication is complete. STUDY: CT HEAD STROKE PROTOCOL W/O CONTRAST INJECTION REASON FOR EXAM: Female, 68 years old. Neuro deficit, acute, stroke suspected RADIATION DOSAGE (If Supplied By Facility): CTDIvol = ( 47.06 ) mGy, DLP = ( 802.10 ) mGycm TECHNIQUE: Transaxial CT imaging of the brain was performed without administration of intravenous contrast material. Individualized dose optimization techniques were used for this CT. COMPARISON: Comparison is made with prior study February 25, 2017. FINDINGS: Normal soft tissue structures. Normal calvarium. There is mild cerebral atrophy with widening of the extra-axial spaces and ventricular dilatation. There are areas of decreased attenuation within the white matter tracts of the supratentorial brain, consistent with microvascular disease changes. 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 Normal brainstem. Normal cerebellum. There is no intracranial hemorrhage. There are no findings of an acute ischemic infarction. Atherosclerotic plaque formation of the cavernous portions of the internal carotid arteries bilaterally. There is a 7.1 mm polyp or retention cyst along the inferior medial wall of the left maxillary sinus. ASPECT score: 10 CT/STROKE Brain/Head without Cont IMPRESSION: Chronic involutional changes of the brain. Electronically Signed: Tj Vela MD at 12:51 EDT ,
--- NOTE | 2024-02-06 12:29 | ED.RN ---
pt reports she always has chest discomfort, this discomfort increased after being taken off plavix. continues to have inattention to left side when talking. pt pulling face/head to left, and stuttering unintelligible. some difficulty directing then pt able to answer direct questions clear and speech.
--- NOTE | 2024-02-06 12:32 | CT_ITS ---
STUDY: CTA HEAD AND NECK WITH CONTRAST REASON FOR EXAM: Female, 68 years old. Slurred speech, inattention to the left, altered m RADIATION DOSAGE (If Supplied By Facility): CTDIvol = ( 27.03 ) mGy, DLP = ( 845.23 ) mGycm TECHNIQUE: CT angiography was performed with a multi-detector CT scanner. Data acquisition was obtained from the skull base through the vertex following intravenous administration of IV 100mL Isovue-370. MIP images were reconstructed from the axial data set. Post-processing of the angiographic images was performed, with multiplanar reformation and 3D reconstruction. Individualized dose optimization techniques were used for this CT. COMPARISON: No relevant priors. FINDINGS: Normal bilateral petrous carotid arteries. There is calcified plaque formation of the right cavernous carotid artery, without a cross-sectional luminal stenosis. There is calcified plaque formation of the left cavernous carotid artery, without a cross-sectional luminal stenosis. Normal right A1 segments of the anterior cerebral artery. Normal left A1 segments of the anterior cerebral artery. Normal intact anterior communicating artery (ACOM). Normal bilateral A2 segments of the anterior cerebral arteries. Normal right M1 and M2 segments of the middle cerebral arteries, with a normal M1 bifurcation. Normal left M1 and M2 segments of the middle cerebral arteries, with a normal M1 bifurcation. Normal right posterior communicating artery (PCOM). Normal left posterior communicating artery (PCOM). Normal bilateral vertebral arteries. Normal basilar artery with a normal basilar bifurcation. The visualized bilateral superior cerebellar (SCA) arteries are normal. Normal bilateral P1, P2 and visualized P3 segments of the posterior cerebral arteries. There is no demonstrated aneurysm of the [place] of [place]. Mucosal thickening of the maxillary sinuses and ethmoid sinuses. AORTIC ARCH: There is a mild degree of atherosclerotic calcific plaque formation of the aortic arch and great vessels arising from the aortic arch, without a hemodynamically significant stenosis. There is a bovine origin of the great vessels with a common origin of the brachiocephalic and left common carotid artery. Normal origin of the left subclavian artery. Normal origins of the brachiocephalic, left common carotid, and left subclavian arteries. RIGHT CAROTID ARTERIES: Normal right common carotid artery (CCA). Normal right common carotid bulb. Normal origin of the right internal carotid (ICA) artery without a hemodynamically significant stenosis. Normal visualized cervical portion of the right internal carotid artery. Normal origin of the right external carotid artery (ECA). LEFT CAROTID ARTERIES: Normal left common carotid artery (CCA). Normal left common carotid bulb. Normal origin of the left internal carotid (ICA) artery without a hemodynamically significant stenosis. Normal visualized cervical portion of the left internal carotid artery. Normal origin of the left external carotid artery (ECA). VERTEBRAL ARTERIES: Normal bilateral vertebral arteries. CT/CTA Head AND Neck W/ Contrast IMPRESSION: Normal CTA Head and neck with contrast. Electronically Signed: Tj Vela MD at 13:05 EDT ,
[2024-02-06 12:39] LABS: Absolute Neutrophil Count 4.3 X10^3/uL (2.0-7.7); Basophil# 0.04 X10^3/uL; Basophil% 0.5 % (0-1); Eosinophil# 0.05 X10^3/uL; Eosinophils% 0.6 % (0-5); Hematocrit 40.5 % (37-47); Hemoglobin 13.3 g/dL (12.0-15.0); Lymphocyte % 35.1 % (19-41); Mean Corp Hgb Conc 32.8 g/dL (32-36); Mean Corpuscular Hgb 29.4 pg (27.0-32.0); Mean Corpuscular Volume 89.4 fL (81-99); Mean Platelet Vol. 11.8 fl (6.2-12.0); Monocyte# 0.82 X10^3/uL; Monocyte% 10.3 % (0-10); NRBC Flagged by Analyzer 0 % (0-5); Neutrophil # 4.25 X10^3/uL (2.7-7.7); Neutrophil % 53.2 % (47-70); Platelet Count 189 K/mm3 (150-450); RBC Distribution Width CV 13.4 % (11.6-14.6); RBC Distribution Width SD 44.2 fl (35.1-43.9); Red Blood Count 4.53 M/mm3 (4.2-5.4)
--- NOTE | 2024-02-06 12:50 | EDS_ITS ---
HPI History of Present Illness Chief Complaint: Headache Detail of Chief Complaint: Right-sided headache, squad noted inattention to the left, single episode w Informant: patient, family and EMS Onset/Context/Timing Onset: - (Unknown when inattention started. Headache has been present for several days to a week.) Context: Sudden Onset Timing: Continuous Quality: Pain Location: Right side over the temporal area Current Severity: Moderate Maximum Severity: Severe Worsened by: Nothing Relieved by: Nothing Associated Symptoms Associated Symptoms: Seen and colors Narrative Narrative: Patient is a 68-year-old woman. She has history of coronary disease with stent deployed February 2017, hypertension, hypercholesterolemia, type 2 diabetes and GERD. She presents by ambulance because of right-sided headache. Squad noted she had inattention to the left. I am in agreement. Patient became bradycardic and route and had a syncopal episode. Patient is on a beta-emmett. Her medication dose has not been changed. Her mailmaster Dr. Tan. She was last seen at the office June. She denies loss of vision. She denies ringing in ears or decreased hearing. She denies trouble with speech or swallowing. She denies paresthesia, anesthesia or motor weakness upper or lower extremity. She denies problems with coordination or balance. Patient denies orthostatic lightheadedness. Patient [place] black or maroon- colored stool. Patient states her Plavix was discontinued this past June. She is presently on a baby aspirin. She is on no anticoagulant. Prior similar symptoms: No Recent Illness/Hospitalization: No PFSH PFS Medical History Old myocardial infarction Type 2 diabetes mellitus GERD (gastroesophageal reflux disease) History of non-ST elevation myocardial infarction (NSTEMI) Pure hypercholesterolemia Presence of stent in coronary artery (~02/23/17) Essential hypertension Chest pain, unspecified Atherosclerotic heart disease of [place] coronary artery without angina pectoris Home Medications ?Medication ?Instructions ?Recorded ?Last Taken ?Type citalopram 20 mg tablet 20 mg PO DAILY 02/23/17 Unknown History aspirin 81 mg tablet,delayed 81 mg PO DAILY@0800 #90 tabs 04/08/18 Unknown Rx release atorvastatin 80 mg tablet 80 mg PO QHS #90 tabs 04/08/18 Unknown Rx metoprolol tartrate 50 mg tablet 50 mg PO BID #180 tabs 04/08/18 Unknown Rx blood sugar diagnostic (OneTouch #100 ea 08/14/19 Unknown Rx Ultra Blue Test Strip) pen needle, diabetic 32 gauge x #400 ea 10/01/19 Unknown Rx 5/32 (BD Ultra-Fine Gwen Pen Needle) insulin detemir U-100 100 unit/mL 30 unit subcut DAILY 08/03/20 Unknown History (3 mL) subcutaneous pen ramipril 5 mg capsule 5 mg PO DAILY #90 caps 02/02/21 Unknown Rx trazodone 50 mg tablet 50 mg PO QHS PRN 09/19/22 Unknown History insulin glargine U-300 conc 300 40 unit subcut 02/18/23 Unknown History unit/mL (1.5 mL) subcutaneous pen (Toujeo SoloStar U-300 Insulin) insulin lispro 100 unit/mL 15 unit subcut TID 02/18/23 Unknown History subcutaneous cartridge (Humalog U-100 Insulin) semaglutide 0.25 mg or 0.5 mg (2 mg subcut 02/18/23 Unknown History mg/3 mL) subcutaneous pen injector (Ozempic) Allergy/AdvReac Type Severity Reaction Status Date / Time codeine AdvReac Other Verified 02/06/24 12:05 Family History Brother CAD (coronary artery disease) Diabetes High cholesterol Brother , age 50 CAD (coronary artery disease) Myocardial infarction Father CAD (coronary artery disease) Aunt CAD (coronary artery disease) Mother Hypertension Surgical History Presence of coronary angioplasty implant and graft (~02/23/17) History of coronary artery bypass surgery (~02/05/17) History of knee replacement (~2005) History of fusion of cervical spine (~1992) History of hysterectomy (~1991) Social History Smoking Status: Never smoker alcohol intake: current alcohol intake frequency: holidays/special occasions only Alcohol type: wine substance use type: does not use caffeine: Yes Type: carbonated beverages Number of servings: 1 what type of physical activity do you participate in: swimming frequency: 1-2 times per week ROS ROS ED Constitutional Constitutional ED: Denies chills, fever(s), subjective or sweats Eyes Eyes: Reports change in vision; Denies blurry vision ENT ENT ED: Denies ear pain, rhinorrhea or sore throat Cardiovascular Cardiovascular: Denies chest pain, orthopnea, palpitations, paroxysmal nocturnal dyspnea or racing heartbeat Respiratory/Chest Respiratory/Chest: Denies cough, dyspnea, dyspnea on exertion, orthopnea or paroxysmal nocturnal dyspnea Gastrointestinal Gastrointestinal: Reports nausea; Denies abdominal pain or vomiting Musculoskeletal Musculoskeletal: Denies arthralgias, back pain, myalgias or neck pain Integumentary Denies abscess, Abrasions or rash Neurologic Neurologic: Denies headache(s), paresthesias or weakness Psychiatric Psychiatric: Denies anxiety Hematologic/Lymphatic Hematologic/Lymphatic: Reports systems reviewed and no addt'l complaints, except as documented EXAM Physical Exam Const Vital Signs: 02/06/24 12:05 02/06/24 12:30 02/06/24 12:34 Temperature 98.2 F Temperature Source Oral Pulse Rate 65 62 Respiratory Rate 18 18 Blood Pressure 130/64 H 130/66 H Blood Pressure Mean 86 87 Pulse Ox 95 96 95 Oxygen Delivery Method Room Air Room Air Room Air Oxygen Flow Rate (L/min) 02/06/24 12:45 02/06/24 12:51 02/06/24 13:00 Temperature Temperature Source Pulse Rate 66 72 Respiratory Rate 20 H 17 Blood Pressure 130/66 H 119/93 H Blood Pressure Mean 87 101 Pulse Ox 95 95 98 Oxygen Delivery Method Room Air Nasal Cannula Room Air Oxygen Flow Rate (L/min) 2 Positive well nourished and well developed General Appearance ED: well developed; Negative for pallor HEENT Reports moist mucous membranes HEENT Narrative: Head is atraumatic normocephalic. There is tenderness over the right temporal artery. Ears are normal. TMs are normal. Nares patent with no discharge. No frontal or maxillary sinus tenderness right or left. Uvula is midline. No deviation with protrusion. No slurred speech. Eyes PERRL and EOMs intact bilaterally Eyes Narrative: There is no nystagmus. Cut. General Eye ED: Negative for pale conjunctiva or scleral icterus Neck no lymphadenopathy, supple and no JVD Chest Wall inspection of chest normal and palpation of chest normal Resp normal respiratory effort and clear to auscultation bilaterally Cardio regular rate, regular rhythm, S1 normal heart sound, S2 normal heart sound and no murmurs Rate: other Other Details: Patient had a bradycardic episode with rate of 20. Appears to be second-degree block. There was 1 or 2 dropped beats noted on the rhythm strip but there is also artifact. Rhythm strips were sent to Dr. Thomas for use in the Customer Accounts Advisor. GI normal to inspection, nondistended, normoactive bowel sounds, non-tender, non- distended and no masses; Negative for hepatosplenomegaly Back/Spine no CVA tenderness Neuro oriented x3, CN's II-XII intact bilaterally and no sensory deficits noted Neuro Narrative: Inattention to the left. Sensorium / Orientation: alert Motor Exam: strength 5/5 throughout Psych mental status grossly normal Skin no rashes or lesions noted, no wounds and skin turgor normal General Skin Exam: Negative for jaundice or pallor MDM MDM MDM Narrative Medical decision making narrative: Concern patient's had a stroke possibly in the past week. After I walked out of the room to speak with the mailmaster on-call Dr. Cabrera. When I walked out of the room nurse informing that patient's eyes deviated to the left. She had difficulty speaking with fluency and slurred words and she complained of increased colors and seeing stars. Nurse documented time of onset since I was not in the room and did not know the exact time. History & Record Review Discussion w/independent historian: EMS personnel, Patient and Family Lab Data Attestation: I reviewed the patient's lab results. Lab results narrative: CBC is unremarkable. Labs: Laboratory Results - last 24 hr 02/06/24 02/06/24 12:28 12:37 WBC 8.0 RBC 4.53 Hgb 13.3 Hct 40.5 MCV 89.4 MCH 29.4 MCHC 32.8 RDW Std Deviation 44.2 H RDW Coeff of Suni 13.4 Plt Count 189 MPV 11.8 Immature Gran % (Auto) 0.300 Neut % (Auto) 53.2 Lymph % (Auto) 35.1 Schuyler % (Auto) 10.3 H Eos % (Auto) 0.6 Baso % (Auto) 0.5 Absolute Neuts (auto) 4.3 Absolute Lymphs (auto) 2.80 Nucleated RBC % 0 Sodium 133 L Potassium 4.2 Chloride 104 Carbon Dioxide 25.0 Anion Gap 4 L BUN 11 Creatinine 1.14 H Estim Creat Clear Calc 48.83 Est GFR (MDRD) Af Amer 60 Est GFR (MDRD) Non-Af 50 L BUN/Creatinine Ratio 9.6 L Glucose 413 H Calcium 9.3 Troponin I High Sens 18 POC Glucose 353 H Radiography Diagnostic Testing: Clinical Impression(s) from Imaging Studies Brain CT 02/06/24 12:29 IMPRESSION: Chronic involutional changes of the brain. Electronically Signed: Tj Vela MD at 12:51 EDT , ADDENDUM: 02/06/24 1259 IMPRESSION: Chronic involutional changes of the brain. N.B. : The above Results were Read Back by Tj Vela MD to Dr Zeb MD, and understanding confirmed on 02/06/2024 12:52:22 (ET). Electronically Signed: Tj Vela MD at 12:51 EDT , Head/Neck CTA 02/06/24 12:32 IMPRESSION: Normal CTA Head and neck with contrast. Electronically Signed: Tj Vela MD at 13:05 EDT , Management Discussion w/another healthcare provider: Hospitalist, Child Welfare Caseworker (Neurologist from [facility] recommends cardiac workup and stroke workup.), Radiologist and Other (Spoke with cardiology. If patient becomes bradycardic again will place a temporary transvenous pacing wire.) Treatment and Re-Evaluation :: Initially a CT of the head was ordered. Because of this event CTA was also ordered. Critical Care Time Critical Care Time: Yes Critical care time (excluding procedures): 30-74 minutes (37 minutes), Including time spent: (History, physical, documentation, review of prior records, review of outside records, independent rotation of laboratory results, placement of pacer pads, discussion with cardiology, hospitalist, radiologist and neurologist.), Discussing w/Patient &/or Family/Slip Maker, Discussing w/Consultants and Arranging Admission or Transfer Discharge Plan Dx/Rx/DC Orders Clinical Impression: Linus-inattention, Atherosclerotic heart disease of [place] coronary artery without angina pectoris, Essential hypertension, Pure hypercholesterolemia, Type 2 diabetes mellitus, Dysarthria, Expressive aphasia, Bradycardia, severe sinus, Syncope Disposition Disposition: Acute Care Hospital [facility]
[2024-02-06 13:00] LABS: Bedside Glucose 353 mg/dL (74-106)
[2024-02-06 13:02] LABS: Anion Gap 4 (5-15); BUN 11 mg/dL (7-18); BUN/Creat Ratio 9.6 RATIO (10-20); Calcium,Total 9.3 mg/dL (8.5-10.1); Chloride 104 mmol/L (98-107); Creatinine, Serum 1.14 mg/dL (0.55-1.02); EST Glomerular Filtration Rate 50 mL/min (>60); Est Glom Filt Rate - Afr Amer 60 mL/min (>60); Estimated Creatinine Clearance 48.83 ml/min; Glucose 413 mg/dL (74-106); Potassium 4.2 mmol/L (3.5-5.1); Sodium Level 133 mmol/L (136-145); Troponin-I HS 18 pg/mL (3.0-54.0); Troponin-I HS (w/2H Reflex) 18 pg/mL (3.0-54.0)
--- NOTE | 2024-02-06 13:13 | RAD_ITS ---
STUDY: X-RAY CHEST REASON FOR EXAM: Female, 68 years old. Neuro deficit, acute, stroke suspected TECHNIQUE: Single AP portable view of the chest. COMPARISON: Comparison is made with prior study February 23, 2017. FINDINGS: EKG electrodes are seen. The lungs are clear and expanded. There is no demonstrated pleural abnormality. Sternal cerclage wires and vascular clips are present from a prior sternotomy and coronary artery bypass graft procedure (CABG). Normal mediastinum and ilya. Normal visualized pulmonary arteries. Normal visualized aortic arch and descending thoracic aorta. Normal visualized thoracic spine. Normal visualized ribs, clavicles, and shoulders. There is no demonstrated abnormality of the visualized soft tissue structures of the upper abdomen. RAD/Chest 1 View IMPRESSION: No acute abnormality is seen. Electronically Signed: Tj Vela MD at 13:37 EDT ,
[2024-02-06 13:18] LABS: Prothrombin Time (Protime)PT. 13.5 SECONDS (11.7-14.9)
--- NOTE | 2024-02-06 13:29 | CHAPLAIN ---
Type of Pastoral Visit ___ Initial Visit ___ Follow-up Visit ___ On-call Visit ___ General Patient Visit ___ Spiritual Assessment ___ Family Conference ___ Bereavement _x__ Rapid Response ___ Code Blue ___ Other (describe below) Pastoral Care Referral From ___ Patient ___ Family ___ Nurse ___ Physician ___ Case Investigator ___ High Raw Sugar Boiler _x__ Other (describe below) Sacrament/Intervention _x__ Active listening ___ Anointing ___ Islam ___ Bereavement ___ Communion ___ Sandra exploration ___ ___ Life review ___ Prayer ___ Reconciliation ___ Sacrament of Sick _x__ Supportive presence ___ Wedding ___ Other (describe below) Pastoral Comments met son of the patient who was in [place]; offer of support given; son indicates that he is doing fine and believes that the patient will be fine as well; no further intervention
--- NOTE | 2024-02-06 13:41 | HP.PCM.HOS_ITS ---
HPI - General General Date of Admission: 02/06/24 Date of Service: 02/06/24 Chief Complaint: Right sided headache HPI Narrative TERESE TIRADO, is a 68 y/o hx CAD s/p PCI in 2017, HTN, DMII, who presented to [facility] ED 02/06/2024 with right-sided headache intermittently for 3 days. In EMS she was noted to have left-sided neglect and then had bradycardia with heart rate 20s to 30s and syncopal episode in ED. Was brought to the ED and had another syncopal episode with heart rate 20s to 30s and also developed left eye deviation and slurred speech in the ED. Patient back to normal rate/normal sinus rhythm and cardiology contacted in ED and it was recommended to hold beta-emmett and monitor closely as this could been vasovagal given other present medical complaints and that she would be seen in consultation, stroke neurologist also evaluated and given unclear timing of hemineglect patient not TNK candidate and was advised workup for further stroke evaluation. Hospitalist contacted for admission. Patient seen with son at bedside and patient reports she woke up with a right-sided headache 3 days ago and the last 8 or 9 hours at a time and she will take Tylenol and have a couple hours of relief before it comes back, will get some tunnel vision in the right eye as well. Upon further questioning this morning she also was unable to read her analog clock and also had difficulty working her phone and getting her close on. Working her phone and getting her close on was a problem this morning and she thinks yesterday is when she had difficulty reading her clock. She does remember the syncopal episode in the EMS and reports she got warm, nauseous, and lightheaded before her syncopal episode for a few minutes and resolution of symptoms when she woke back up and this was treated in the ED as well. Does note the worsening of her neurological symptoms in the ED with slurred speech and stars on the left side of her vision with the stars remaining and patient reports otherwise symptoms have resolved however does seem to be having difficulty with her speech still. She initially said she has not had any chest discomfort but son reports that she has possibly intermittently had some discomfort over the past week or so and she said that this was true but no association with exertion or rest and denies any other warm, lightheaded, nauseous episodes and no other syncopal episodes prior to EMS. Initially said headache was gone however then remarked that she does have still a little bit of aching on the right side but denies any numbness, weakness, tingling denies ever having this. No other acute complaints. [facility] Medical History Old myocardial infarction Type 2 diabetes mellitus GERD (gastroesophageal reflux disease) History of non-ST elevation myocardial infarction (NSTEMI) Pure hypercholesterolemia Presence of stent in coronary artery (~02/23/17) Essential hypertension Chest pain, unspecified Atherosclerotic heart disease of [place] coronary artery without angina pectoris Home Medications ?Medication ?Instructions ?Recorded ?Last Taken ?Type citalopram 20 mg tablet 20 mg PO DAILY 02/23/17 Unknown History aspirin 81 mg tablet,delayed 81 mg PO DAILY@0800 #90 tabs 04/08/18 Unknown Rx release atorvastatin 80 mg tablet 80 mg PO QHS #90 tabs 04/08/18 Unknown Rx metoprolol tartrate 50 mg tablet 50 mg PO BID #180 tabs 04/08/18 Unknown Rx blood sugar diagnostic (OneTouch #100 ea 08/14/19 Unknown Rx Ultra Blue Test Strip) pen needle, diabetic 32 gauge x #400 ea 10/01/19 Unknown Rx 5/32 (BD Ultra-Fine Gwen Pen Needle) insulin detemir U-100 100 unit/mL 30 unit subcut DAILY 08/03/20 Unknown History (3 mL) subcutaneous pen ramipril 5 mg capsule 5 mg PO DAILY #90 caps 02/02/21 Unknown Rx trazodone 50 mg tablet 50 mg PO QHS PRN 09/19/22 Unknown History insulin glargine U-300 conc 300 40 unit subcut 02/18/23 Unknown History unit/mL (1.5 mL) subcutaneous pen (Toujeo SoloStar U-300 Insulin) insulin lispro 100 unit/mL 15 unit subcut TID 02/18/23 Unknown History subcutaneous cartridge (Humalog U-100 Insulin) semaglutide 0.25 mg or 0.5 mg (2 mg subcut 02/18/23 Unknown History mg/3 mL) subcutaneous pen injector (Ozempic) Allergy/AdvReac Type Severity Reaction Status Date / Time codeine AdvReac Other Verified 02/06/24 12:05 Family History Brother CAD (coronary artery disease) Diabetes High cholesterol Brother , age 50 CAD (coronary artery disease) Myocardial infarction Father CAD (coronary artery disease) Aunt CAD (coronary artery disease) Mother Hypertension Surgical History Presence of coronary angioplasty implant and graft (~02/23/17) History of coronary artery bypass surgery (~02/05/17) History of knee replacement (~2005) History of fusion of cervical spine (~1992) History of hysterectomy (~1991) Social History Smoking Status: Never smoker alcohol intake: current alcohol intake frequency: holidays/special occasions only Alcohol type: wine substance use type: does not use caffeine: Yes Type: carbonated beverages Number of servings: 1 what type of physical activity do you participate in: swimming frequency: 1-2 times per week ROS ROS Narrative General: Denies fever/chills HENT: Intermittent severe right-sided headache for 3 days, denies stuffy nose, denies sore throat EYES: Stars in left field of vision Resp: Denies cough, denies shortness of breath Cardiac: Denies chest pain at present, possibly had some discomfort intermittently over the past week with no association with exertion or rest GI: Denies abdominal pain, denies changes in bowel, denies current nausea or vomiting but did feel warm and nauseous prior to her syncopal episodes : Denies changes in urination Extremity: Denies swelling MSK: Denies weakness Neuro: Denies any numbness/tingling Heme: Denies any bleeding or bruising Skin: Denies rashes Psychiatric: No complaints voiced Vital Signs Vital Signs Vital Signs: 02/06/24 12:05 02/06/24 12:30 02/06/24 12:34 Temperature 98.2 F Temperature Source Oral Pulse Rate 65 62 Respiratory Rate 18 18 Blood Pressure 130/64 H 130/66 H Blood Pressure Mean 86 87 Pulse Ox 95 96 95 Oxygen Delivery Method Room Air Room Air Room Air Oxygen Flow Rate (L/min) 02/06/24 12:45 02/06/24 12:51 02/06/24 13:00 Temperature Temperature Source Pulse Rate 66 72 Respiratory Rate 20 H 17 Blood Pressure 130/66 H 119/93 H Blood Pressure Mean 87 101 Pulse Ox 95 95 98 Oxygen Delivery Method Room Air Nasal Cannula Room Air Oxygen Flow Rate (L/min) 2 Weight Weight: 89.811 kg Body Mass Index (BMI) 35.0 Physical Exam Narrative General: Alert, oriented, no apparent distress HEENT: Atraumatic, normocephalic Eyes: Anicteric, normal conjunctiva, extraocular movements intact, pupils equal, is naturally deviating eyes to the left Neck: Supple Respiratory: Clear to auscultation bilaterally, normal respiratory effort Cardiovascular: Regular rate and rhythm GI: Soft, nontender, nondistended Extremities: No edema Musculoskeletal: Strength 5 out of 5 in right upper extremity, 5 out of 5 left upper extremity, 5 out of 5 right lower extremity, 5 out of 5 left lower extremity Neuro: No overt focal neurological deficits, cranial nerves II through XII intact, [id number] without difficulty on ride hemisphere but unable to complete on left hemisphere Skin: No rashes appreciated Psych: Cooperative Results Lab / Micro Data 02/06/24 12:28 02/06/24 12:28 Labs: Laboratory Results - last 24 hr 02/06/24 12:28: WBC 8.0, RBC 4.53, Hgb 13.3, Hct 40.5, MCV 89.4, MCH 29.4, MCHC 32.8, RDW Std Deviation 44.2 H, RDW Coeff of Suni 13.4, Plt Count 189, MPV 11.8, Immature Gran % (Auto) 0.300, Neut % (Auto) 53.2, Lymph % (Auto) 35.1, [place] % (Auto) 10.3 H, Eos % (Auto) 0.6, Baso % (Auto) 0.5, Absolute Neuts (auto) 4.3, Absolute Lymphs (auto) 2.80, Nucleated RBC % 0, PT 13.5, INR 1.0, APTT 24.0 L, S odium 133 L, Potassium 4.2, Chloride 104, Carbon Dioxide 25.0, Anion Gap 4 L, BUN 11, Creatinine 1.14 H, Estim Creat Clear Calc 48.83, Est GFR (MDRD) Af Amer 60, Est GFR (MDRD) Non-Af 50 L, BUN/Creatinine Ratio 9.6 L, Glucose 413 H, Calcium 9.3, Troponin I High Sens 18 02/06/24 12:37: POC Glucose 353 H Imaging Radiology Impression Brain CT 02/06/24 12:29 IMPRESSION: Chronic involutional changes of the brain. Electronically Signed: Tj Vela MD at 12:51 EDT , ADDENDUM: 02/06/24 1259 IMPRESSION: Chronic involutional changes of the brain. N.B. : The above Results were Read Back by Tj Vela MD to Dr Zeb MD, and understanding confirmed on 02/06/2024 12:52:22 (ET). Electronically Signed: Tj Vela MD at 12:51 EDT , Head/Neck CTA 02/06/24 12:32 IMPRESSION: Normal CTA Head and neck with contrast. Electronically Signed: Tj Vela MD at 13:05 EDT , Chest X-Ray 02/06/24 13:13 IMPRESSION: No acute abnormality is seen. 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 PLAN: Plan #Expressive aphasia, left-sided inattention, severe right sided headache -Admit to ICU given multiple syncopal episodes -Seen by teleneurology in ED- no TNK -CT head w/ chronic changes in ED -CTA head and neck with no critical stenosis -MRI ordered -NIH q4hr -loaded with asa, daily asa, statin -Echo w/ bubble study -PT/OT/Speech eval -Hold BP medications to allow for permissive hypertension for 24 hours unless SBP greater than 220 or DBP greater than 120 or until stroke is ruled out -Teleneurology consult # Syncopal episode due to bradycardia -Admit to ICU -Hold beta-emmett -Pacer pads placed -Monitor telemetry -Cardiology consult -Check TSH and magnesium -Troponin is within normal limits in ED -Echocardiogram #CAD s/p stenting and CABG -On aspirin, previously taken with Plavix -EKG normal sinus rhythm with findings suggestive of RV conduction delay, no ST elevations #Type 2 diabetes mellitus -Glucose checks and sliding scale insulin -Add long acting insulin once doses confirmed #HTN -Hold due to concern for CVA rule out #DVT ppx: SCDs Tanya Lopez MD Time spent in the patient's overall evaluation,decision-making process, review of diagnostic data, adjustment of management, discussion with other providers, nursing nursing and ancillary staff involved in patient's care documentation, 75 minutes Charges/Coding Visit Charges Inpatient E&M: 48758 Init Hosp L3
--- NOTE | 2024-02-06 13:57 | ECHOCS_ITS ---
Reason For Study: TIA/STROKE Procedure This was a 2D Doppler, Color Flow transthoracic echocardiogram. The study was technically difficult. Contrast injection was performed. Exam performed portable in ICU/CCU. Left Ventricle Normal left ventricle. The estimated ejection fraction is 55-60 %. Right Ventricle Normal right ventricle. Normal systolic function. Atria Normal left atrium. Normal right atrium. Mitral Valve The mitral valve is structurally normal. No prolapse or stenosis seen. Trivial mitral valve insufficiency. Tricuspid Valve Normal tricuspid valve. Mild tricuspid valve insufficiency. Aortic Valve Moderate focal aortic valve calcification. Pulmonic Valve The pulmonic valve is not well visualized. Great Vessels Normal aortic root. Pericardium/Pleural No pericardial effusion. Medication Diluted definity 1ml given slow IV push to enhance endocardial definition. Performed a rapid injection of agitated mix of 9 cc saline and 1cc air to assess for atrial septal defect. MMode/2D Measurements & Calculations LVIDd: 4.1 cm IVSd: 1.3 cm LAV(MOD-sp4): 35.4 ml LVIDs: 2.9 cm LVPWd: 1.2 cm FS: 30.3 % LVAd ap4: 32.5 cm2 SV(MOD-sp4): 76.4 ml SV(sp4-el): 79.7 ml LVLd ap4: 7.6 cm EDV(MOD-sp4): 114.2 ml EDV(sp4-el): 118.3 ml LVAs ap4: 16.0 cm2 LVLs ap4: 5.6 cm ESV(MOD-sp4): 37.8 ml ESV(sp4-el): 38.6 ml EF(MOD-sp4): 66.9 % EF(sp4-el): 67.4 % LA A4 area: 15.7 cm2 LA dimension(2D): 3.5 cm RA A4 area: 13.2 cm2 Time Measurements MV dec time: 0.28 sec Doppler Measurements & Calculations MV E max juanito: 69.1 cm/sec Lat Peak E' Juanito: 15.0 cm/sec Med Peak E' Juanito: 6.6 cm/sec MV A max juanito: 85.2 cm/sec E/E' lat: 4.6 E/E' med: 10.4 MV E/A: 0.81 MV V2 max: 87.5 cm/sec Ao V2 max: 167.6 cm/sec MV max P.1 mmHg MV dec slope: 249.2 cm/sec2 Ao max P.2 mmHg MV V2 mean: 52.5 cm/sec Ao V2 mean: 113.8 cm/sec MV mean P.3 mmHg Ao mean P.0 mmHg MV V2 VTI: 31.2 cm Ao V2 VTI: 36.7 cm AV (velocity ratio): 0.84 LV V1 max: 144.7 cm/sec PA V2 max: 76.8 cm/sec TR max juanito: 280.0 cm/sec LV V1 max P.4 mmHg PA V2 mean: 51.7 cm/sec TR max P.4 mmHg LV V1 mean P.2 mmHg LV V1 mean: 94.0 cm/sec LV V1 VTI: 30.9 cm ECHO/Echo Complete W/ Contrast Interpretation Summary The estimated ejection fraction is 55-60 %. Normal LV systolic function Mild TR No significant change from prior echocardiogram Ordering Physician: Tanya Lopez Referring Physician: Thien Baeza Performed By: Анна Jaquez and Student
--- NOTE | 2024-02-06 13:57 | MRI_ITS ---
STUDY: MRI BRAIN WITHOUT CONTRAST REASON FOR EXAM: Female, 68 years old. CVA concern.rt sided h/a, left neglect, syncope episode, lt eye deviation, slurred speech; prev ct TECHNIQUE: Standardized multiplanar fat and water weighted pulse sequences were obtained. MRI examination brain obtained with standard protocol including Contrast: No contrast COMPARISON: CT of 02/06/2024, 02/25/2017 HEMISPHERES, CEREBELLUM AND BRAINSTEM: 1. The cerebral parenchyma, ventricular system, subarachnoid spaces have normal configuration and density. There is a normal gyral pattern. There is normal capellan/white differentiation. No midline shift.. 2. Mild involutional change and chronic microvascular deep white matter disease. Areas of remote lacunar infarct in the centrum semiovale. No evidence of fluid restriction or acute ischemic change. No hemosiderin deposition or hemorrhage. 3. No intraparenchymal mass, hemorrhage, or acute territorial infarct. 4. The cerebellum, brainstem, basilar and suprasellar cisterns have normal appearance. No Chiari malformation. PITUITARY: Infundibulum and pituitary have normal configuration. Midline structures appear normal. CSF SPACES: Appropriate for age. No hydrocephalus. Basal cisterns are patent. VESSELS: 1. There are normal flow voids noted in the great vessels at the skull base ORBITS AND PARANASAL SINUSES: 1. Both globes, extraocular muscles, optic nerves and retrobulbar fat appear unremarkable. 2. Small mucous retention cyst in the maxillary antra bilaterally. No fluid accumulation. BONY ELEMENTS: Bony elements of the cranial vault, facial skeleton and skull base have normal appearance. SCALP AND SOFT TISSUES: Normal appearance of the soft tissues of the scalp and the visualized face OTHER: None MRI/Brain without Contrast IMPRESSION: 1. Mild involutional change and chronic microvascular deep white matter disease. 2. Focal areas remote lacunar infarct in the centrum semiovale bilaterally. 3. No mass, hemorrhage, or acute territorial infarct. Electronically Signed: Hero Rodriguez MD at 20:48 EDT ,
[2024-02-06 14:34] LABS: Reflex Troponin-HS? (from REC) Y
[2024-02-06 14:38] LABS: Thyroid Stim Hormone (TSH) 2.79 uIU/mL (0.358-3.74)
[2024-02-06 14:42] LABS: Hemoglobin A1c 11.4 % (3.8-5.6)
[2024-02-06 15:33] LABS: Troponin-I HS 19 pg/mL (3.0-54.0)
[2024-02-06] MEDS: 0.9% Normal Saline (1000mL) 1,000 ML 75 ML IV (15:43)
[2024-02-06] MEDS: Insulin Lispro 100 UNIT/ML INSULN.PEN SC ×2 (15:44→21:03)
[2024-02-06] MEDS: Aspirin 325 MG Tablet PO (15:45)
[2024-02-06 15:59] LABS: Bedside Glucose 329 mg/dL (74-106)
--- NOTE | 2024-02-06 17:01 | CON.PCM.CA_ITS ---
Assessment & Plan Assessment/Plan (1) Bradycardia, severe sinus: PLAN: Patient had symptomatic bradycardia. Her episodes happened when she was having severe pain and it is possible that there was a vasovagal component to this bradycardia. Reasonable to stop her metoprolol and monitor her on telemetry. EKG reveals sinus rhythm with incomplete right bundle branch block. (2) Syncope: QUALIFIERS: Syncope type: unspecified Qualified Code(s): R55 - Syncope and collapse PLAN: Syncope occurred during bradycardia. Please see above for plan for the bradycardia. (3) Headache: QUALIFIERS: Headache type: unspecified Headache chronicity pattern: unspecified pattern Intractability: not intractable Qualified Code(s): R51.9 - Headache, unspecified PLAN: Workup per primary team. HPI Consult Data Date of Consult: 02/06/24 HPI Narrative Reason for Consultation: Bradycardia HPI Narrative: TERESE TIRADO, is a 68 F who presents with severe headache. Patient's headache has been going on since last Saturday. It is mostly on the right temporal region. She has tenderness to palpation in this region. She states that when she was combing her hair it would hurt. She has also been having episodes where she gets tunnel vision, everything becomes dark etc. These episodes usually happen when she has significant headache. On the way to the hospital patient became bradycardic and had a syncopal event. In the emergency room as well she had bradycardia with slurred speech and also syncope. She is on metoprolol 50 mg p.o. twice daily. She has been admitted to the ICU and has not had any further episodes of bradycardia. When the patient was at home there was a brief period where she was confused and could not operate her cell phone or put on her clothes. Patient denies any anginal type chest pain. She states occasionally she feels something in her chest but it is not significant chest pressure or pain. She is unable to describe this any further. Review of systems: All systems reviewed. All else is negative except that in [facility] Medical History Old myocardial infarction Type 2 diabetes mellitus GERD (gastroesophageal reflux disease) History of non-ST elevation myocardial infarction (NSTEMI) Pure hypercholesterolemia Presence of stent in coronary artery (~02/23/17) Essential hypertension Chest pain, unspecified Atherosclerotic heart disease of [place] coronary artery without angina pectoris Home Medications ?Medication ?Instructions ?Recorded ?Last Taken ?Type citalopram 20 mg tablet 40 mg PO DAILY 02/23/17 Unknown History aspirin 81 mg tablet,delayed 81 mg PO DAILY@0800 #90 tabs 04/08/18 Unknown Rx release atorvastatin 80 mg tablet 80 mg PO QHS #90 tabs 04/08/18 Unknown Rx metoprolol tartrate 50 mg tablet 50 mg PO BID #180 tabs 04/08/18 Unknown Rx blood sugar diagnostic (OneTouch #100 ea 08/14/19 Unknown Rx Ultra Blue Test Strip) pen needle, diabetic 32 gauge x #400 ea 10/01/19 Unknown Rx /32 (BD Ultra-Fine Gwen Pen Needle) insulin detemir U-100 100 unit/mL 30 unit subcut DAILY 08/03/20 Unknown History (3 mL) subcutaneous pen trazodone 50 mg tablet 50 mg PO QHS 09/19/22 Unknown History insulin glargine U-300 conc 300 40 unit subcut QHS 02/18/23 Unknown History unit/mL (1.5 mL) subcutaneous pen (Toujeo SoloStar U-300 Insulin) insulin lispro 100 unit/mL 18 unit subcut TID 02/18/23 Unknown History subcutaneous cartridge (Humalog U-100 Insulin) semaglutide 0.25 mg or 0.5 mg (2 2.5 mg subcut DAILY 02/18/23 Unknown History mg/3 mL) subcutaneous pen injector (Ozempic) ramipril 5 mg capsule 5 mg PO BID 02/06/24 Unknown History Allergy/AdvReac Type Severity Reaction Status Date / Time codeine AdvReac Other Verified 02/06/24 12:05 Family History Brother CAD (coronary artery disease) Diabetes High cholesterol Brother , age 50 CAD (coronary artery disease) Myocardial infarction Father CAD (coronary artery disease) Aunt CAD (coronary artery disease) Mother Hypertension Surgical History Presence of coronary angioplasty implant and graft (~02/23/17) History of coronary artery bypass surgery (~02/05/17) History of knee replacement (~2005) History of fusion of cervical spine (~1992) History of hysterectomy (~1991) Social History Smoking Status: Never smoker alcohol intake: current alcohol intake frequency: holidays/special occasions only Alcohol type: wine substance use type: does not use caffeine: Yes Type: carbonated beverages Number of servings: 1 what type of physical activity do you participate in: swimming frequency: 1-2 times per week Physical Exam Const alert and oriented x3 HEENT normocephalic Eyes no scleral icterus Resp normal respiratory effort Extremity no pedal edema Risk Stratification Risk Stratification Applicable: No Charges/Coding Visit Charges Inpatient E&M: 23353 Init Hosp L2 Objective Data Vital Signs: Vital Signs Temp Pulse Resp BP Pulse Ox O2 Del Method O2 Flow Rate 97.7 F L 68 15 151/78 H 95 Room Air 2 02/06/24 15:23 02/06/24 16:08 02/06/24 16:08 02/06/24 16:08 02/06/24 16:08 02/06/24 16:08 02/06/24 15:00 Oxygen Flow Rate (L/min) 2 Oxygen Delivery Method Room Air Weight: 184 lb 15.485 oz Body Mass Index (BMI) 32.8 Intake & Output: Intake and Output for Last 24 Hours 02/04/24 02/05/24 02/06/24 23:59 23:59 23:59 Intake Total 300 / 300 Balance 300 / 300 Lab / Micro Data 02/06/24 12:28 02/06/24 12:28 Labs: Laboratory Results - last 24 hr 02/06/24 12:28: WBC 8.0, RBC 4.53, Hgb 13.3, Hct 40.5, MCV 89.4, MCH 29.4, MCHC 32.8, RDW Std Deviation 44.2 H, RDW Coeff of Suni 13.4, Plt Count 189, MPV 11.8, Immature Gran % (Auto) 0.300, Neut % (Auto) 53.2, Lymph % (Auto) 35.1, [place] % (Auto) 10.3 H, Eos % (Auto) 0.6, Baso % (Auto) 0.5, Absolute Neuts (auto) 4.3, Absolute Lymphs (auto) 2.80, Nucleated RBC % 0, PT 13.5, INR 1.0, APTT 24.0 L, S odium 133 L, Potassium 4.2, Chloride 104, Carbon Dioxide 25.0, Anion Gap 4 L, BUN 11, Creatinine 1.14 H, Estim Creat Clear Calc 48.83, Est GFR (MDRD) Af Amer 60, Est GFR (MDRD) Non-Af 50 L, BUN/Creatinine Ratio 9.6 L, Glucose 413 H, H emoglobin A1c 11.4 H, Calcium 9.3, Magnesium 2.0, Troponin I High Sens 18, TSH 2.79 02/06/24 12:37: POC Glucose 353 H 02/06/24 14:56: Troponin I High Sens 19 02/06/24 15:36: POC Glucose 329 H Cardiology Labs/Tests 02/06/24 12:28: WBC 8.0, RBC 4.53, Hgb 13.3, Hct 40.5, MCV 89.4, MCH 29.4, MCHC 32.8, Plt Count 189, MPV 11.8, Immature Gran % (Auto) 0.300, Neut % (Auto) 53.2, Lymph % (Auto) 35.1, [place] % (Auto) 10.3 H, Eos % (Auto) 0.6, Baso % (Auto) 0.5, Absolute Neuts (auto) 4.3, Nucleated RBC % 0, PT 13.5, INR 1.0, APTT 24.0 L, S odium 133 L, Potassium 4.2, Chloride 104, Carbon Dioxide 25.0, Anion Gap 4 L, BUN 11, Creatinine 1.14 H, Est GFR (MDRD) Af Amer 60, Est GFR (MDRD) Non-Af 50 L , BUN/Creatinine Ratio 9.6 L, Glucose 413 H, Hemoglobin A1c 11.4 H, Calcium 9.3, Magnesium 2.0 Rhythm: EKG: ECHO: Stress Test: Cardiac Cath: PCI: CT Surgery: Holter monitor: EPS: PPM: CXR: Chest CT Scan: Radiography Diagnostic Testing: Radiology Impression Brain CT 02/06/24 12:29 IMPRESSION: Chronic involutional changes of the brain. Electronically Signed: Tj Vela MD at 12:51 EDT , ADDENDUM: 02/06/24 1259 IMPRESSION: Chronic involutional changes of the brain. N.B. : The above Results were Read Back by Tj Vela MD to Dr Zeb MD, and understanding confirmed on 02/06/2024 12:52:22 (ET). Electronically Signed: Tj Vela MD at 12:51 EDT , Head/Neck CTA 02/06/24 12:32 IMPRESSION: Normal CTA Head and neck with contrast. Electronically Signed: Tj Vela MD at 13:05 EDT , Chest X-Ray 02/06/24 13:13 IMPRESSION: No acute abnormality is seen. Electronically Signed: Tj Vela MD at 13:37 EDT ,
[2024-02-06 18:43] LABS: AST(SGOT) 15 U/L (15-37); Alanine Aminotransfer ALT/SGPT 35 U/L (13-56); Albumin, Serum 3.3 g/dL (3.2-5.0); Alkaline Phosphatase 70 U/L (45-117); CRP < 2.90 mg/L (0.0-3.0); Globulin 3.8 g/dL (2.2-4.2); Protein, Total 7.1 g/dL (6.4-8.2)
[2024-02-06 19:15] LABS: Erythrocyte Sedimentation Rate 18 mm/hr (0-30)
[2024-02-06] MEDS: traZODone 50 MG Tablet PO (21:03)
[2024-02-06] MEDS: Atorvastatin Calcium 80 MG Tablet PO (21:03)
[2024-02-06] MEDS: Insulin Glargine-YFGN 100 UNIT/ML Pen 30 UNIT SC (21:04)
[2024-02-06 21:27] LABS: Bedside Glucose 245 mg/dL (74-106)
[2024-02-07] VITALS (18 sets, daily range): BP systolic 94–158; BP diastolic 44–95; PULSE 57–89; RESP 13–20; TEMP 36.4–36.9; O2SAT 92–99; BMI 33.5
--- NOTE | 2024-02-07 00:42 | CT_ITS ---
INDICATION: seizure EXAMINATION: CT BRAIN - CT Head or Brain W/O Contrast Injection TECHNIQUE: Multiple axial images were obtained of the head without intravenous contrast. A radiation dose optimization technique was used for this scan. IV Contrast dosage and agent: None. COMPARISON: MRI brain and CT February 06, 2024 FINDINGS: BRAIN PARENCHYMA: No intra- or extra-axial hemorrhage. No evidence of acute infarct. No intracranial mass or mass effect. Mild periventricular and subcortical white matter hypodense chronic small vessel white matter ischemic change. There is preservation of the capellan/white matter interface. Posterior fossa structures are unremarkable. Carotid atherosclerosis. CSF SPACES: Cerebral volume appropriate for age. No hydrocephalus. Basal cisterns are patent. CALVARIUM, SKULL BASE, PARANASAL SINUSES AND MASTOID AIR CELLS: No acute osseous finding. Mild scattered paransal sinus mucoperisteal thickening. Mastoid air cells are clear. ORBITS: Both globes, extraocular muscles, optic nerves and retrobulbar fat appear unremarkable. ASPECTS Score for Acute Strokes: 10 CT/Brain/Head without Contrast IMPRESSION: No CT evidence of acute intracranial hemorrhage or injury. Mild senescent changes with atherosclerosis compatible with age. Electronically Signed: Dave Singleton MD at 2:40 EDT ,
[2024-02-07] MEDS: levETIRAcetam IV 1,000 MG/100 ML BAG 400 MG IV (00:51)
[2024-02-07] MEDS: LORazepam 2 MG/ML Syringe IV (00:51)
--- NOTE | 2024-02-07 00:51 | PCM.HOSP.N ---
Hospitalist Note Patient with seizure this morning. Rub response team was called because of seizure. When I arrived, the patient was no longer seizing. Nursing said the patient was seizing from 2 to 3 minutes and then was confused. No known history of seizures. I evaluated the patient, she is awake, she is confused not following commands but her vital signs are currently stable. Patient had MRI earlier today that did not show any acute process though did show old lacunar infarcts. I ordered 1 g of IV levetiracetam as well as as needed lorazepam IV. Head CT ordered. Seizure precautions. Neurology consult..
--- NOTE | 2024-02-07 02:31 | NURSING ---
Telemetry alarm for desat to 51% with good wave form at 00:37. noted on camera that patient was having seizure like activity. This RN and nutrition services assistant Boo immediately went into room to check patient and confirmed pt was actively seizing. turned patient on side and called an ASSISTANT PROFESSOR OF [employer]IMINAL JUSTICE. Suction set up and this RN stayed by patient side to maintain pt safety. After 3 minutes, patient became still and relaxed with jaw clenched and breathing heavily. Oxygen applied via nonrebreather. Dr. Ruiz arrived and ordered ativan, Kepra, and a new head CT. At 0053 patient began to have another Tonic clonic seizure. IV ativan pushed and Kepra hung. Seizure activity stopped at 0054. Pt taken down to head CT. NIH score 10 at 0200.
[2024-02-07 04:52] LABS: Absolute Lymphocyte Count 2.96 X10^3/uL (0.83-4.51); Absolute Neutrophil Count 4.4 X10^3/uL (2.0-7.7); Basophil# 0.03 X10^3/uL; Basophil% 0.4 % (0-1); Eosinophil# 0.03 X10^3/uL; Eosinophils% 0.4 % (0-5); Hematocrit 37.7 % (37-47); Hemoglobin 12.5 g/dL (12.0-15.0); Lymphocyte # 2.96 X10^3/ul (0.83-4.51); Lymphocyte % 36.6 % (19-41); Mean Corp Hgb Conc 33.2 g/dL (32-36); Mean Corpuscular Hgb 29.9 pg (27.0-32.0); Mean Corpuscular Volume 90.2 fL (81-99); Mean Platelet Vol. 11.4 fl (6.2-12.0); Monocyte# 0.64 X10^3/uL; Monocyte% 7.9 % (0-10); NRBC Flagged by Analyzer 0 % (0-5); Neutrophil % 54.5 % (47-70); Platelet Count 154 K/mm3 (150-450); RBC Distribution Width CV 13.6 % (11.6-14.6); RBC Distribution Width SD 44.8 fl (35.1-43.9); Red Blood Count 4.18 M/mm3 (4.2-5.4); White Blood Count 8.1 K/mm3 (4.4-11.0)
[2024-02-07 05:11] LABS: ALB/GLOB Ratio 0.9 RATIO (0.9-2.4); AST(SGOT) 17 U/L (15-37); Alanine Aminotransfer ALT/SGPT 29 U/L (13-56); Alkaline Phosphatase 54 U/L (45-117); Anion Gap 7 (5-15); BUN 9 mg/dL (7-18); BUN/Creat Ratio 8.3 RATIO (10-20); Calcium,Total 8.6 mg/dL (8.5-10.1); Chloride 108 mmol/L (98-107); Cholesterol 147 mg/dL (200); Creatinine, Serum 1.09 mg/dL (0.55-1.02); EST Glomerular Filtration Rate 53 mL/min (>60); Est Glom Filt Rate - Afr Amer 64 mL/min (>60); Estimated Creatinine Clearance 49.28 ml/min; Globulin 3.2 g/dL (2.2-4.2); Glucose 287 mg/dL (74-106); High Density Lipoprotein 45 mg/dL; Potassium 4.2 mmol/L (3.5-5.1); Protein, Total 6.2 g/dL (6.4-8.2); Sodium Level 137 mmol/L (136-145); Triglycerides 325 mg/dL; Very Low Density Lipoprotein 65 mg/dL (5-40)
--- NOTE | 2024-02-07 07:12 | PCM.PN.HOSP ---
Reason for Visit Reason for Visit: Diagnoses Type 2 diabetes mellitus with hyperglycemia (02/06/24) Bradycardia, unspecified (02/06/24) Aphasia (02/06/24) Headache, unspecified (02/06/24) Syncope and collapse (02/06/24) senior living (current) use of insulin (02/06/24) Presence of coronary angioplasty implant and graft (02/06/24) Subjective Subjective Patient is a 68-year-old lady admitted with expressive aphasia and left-sided neglect and severe right-sided headache Objective Data Objective Data Vital Signs: Vital Signs Temp Pulse Resp BP Pulse Ox O2 Del Method O2 Flow Rate 97.9 F 60 14 94/62 97 Nasal Cannula 2 02/07/24 04:00 02/07/24 07:00 02/07/24 07:00 02/07/24 07:00 02/07/24 07:00 02/07/24 07:00 02/07/24 07:00 Oxygen Flow Rate (L/min) 2 Oxygen Delivery Method Nasal Cannula Weight: 85.9 kg Body Mass Index (BMI) 33.5 Intake & Output: Intake and Output for Last 24 Hours 02/05/24 02/06/24 02/07/24 23:59 23:59 23:59 Intake Total 1050 / 1050 850 / 850 Balance 1050 / 1050 850 / 850 Lab / Micro Data 02/07/24 04:45 02/07/24 04:45 Labs: Laboratory Results - last 24 hr 02/06/24 12:28: WBC 8.0, RBC 4.53, Hgb 13.3, Hct 40.5, MCV 89.4, MCH 29.4, MCHC 32.8, RDW Std Deviation 44.2 H, RDW Coeff of Suni 13.4, Plt Count 189, MPV 11.8, Immature Gran % (Auto) 0.300, Neut % (Auto) 53.2, Lymph % (Auto) 35.1, Maries % (Auto) 10.3 H, Eos % (Auto) 0.6, Baso % (Auto) 0.5, Absolute Neuts (auto) 4.3, Absolute Lymphs (auto) 2.80, Nucleated RBC % 0, PT 13.5, INR 1.0, APTT 24.0 L, Sodium 133 L, Potassium 4.2, Chloride 104, Carbon Dioxide 25.0, Anion Gap 4 L, BUN 11, Creatinine 1.14 H, Estim Creat Clear Calc 48.83, Est GFR (MDRD) Af Amer 60, Est GFR (MDRD) Non-Af 50 L, BUN/Creatinine Ratio 9.6 L, Glucose 413 H, Hemoglobin A1c 11.4 H, Calcium 9.3, Magnesium 2.0, Troponin I High Sens 18, TSH 2.79 02/06/24 12:37: POC Glucose 353 H 02/06/24 14:56: ESR Cancelled, Total Bilirubin 1.10 H, Direct Bilirubin 0.20, AST 15, ALT 35, Alkaline Phosphatase 70, Troponin I High Sens 19, C-React Prot Ext Range < 2.90, Total Protein 7.1, Albumin 3.3, Globulin 3.8 02/06/24 15:36: POC Glucose 329 H 02/06/24 18:30: ESR 18 02/06/24 20:56: POC Glucose 245 H 02/07/24 04:45: WBC 8.1, RBC 4.18 L, Hgb 12.5, Hct 37.7, MCV 90.2, MCH 29.9, MCHC 33.2, RDW Std Deviation 44.8 H, RDW Coeff of Suni 13.6, Plt Count 154, MPV 11.4, Immature Gran % (Auto) 0.200, Neut % (Auto) 54.5, Lymph % (Auto) 36.6, Maries % (Auto) 7.9, Eos % (Auto) 0.4, Baso % (Auto) 0.4, Absolute Neuts (auto) 4.4, Absolute Lymphs (auto) 2.96, Nucleated RBC % 0, Sodium 137, Potassium 4.2, Chloride 108 H, Carbon Dioxide 22.0, Anion Gap 7, BUN 9, Creatinine 1.09 H, Estim Creat Clear Calc 49.28, Est GFR (MDRD) Af Amer 64, Est GFR (MDRD) Non-Af 53 L, BUN/Creatinine Ratio 8.3 L, Glucose 287 H, Calcium 8.6, Total Bilirubin 1.20 H, AST 17, ALT 29, Alkaline Phosphatase 54, Total Protein 6.2 L, Albumin 3.0 L, Globulin 3.2, Albumin/Globulin Ratio 0.9, Triglycerides 325 H, Cholesterol 147, LDL Cholesterol 37, VLDL Cholesterol 65 H, HDL Cholesterol 45 Radiography Diagnostic Testing: Radiology Impression Brain CT 02/06/24 12:29 IMPRESSION: Chronic involutional changes of the brain. Electronically Signed: Tj Vela MD at 12:51 EDT , ADDENDUM: 02/06/24 1259 IMPRESSION: Chronic involutional changes of the brain. N.B. : The above Results were Read Back by Tj Vela MD to Dr Zeb MD, and understanding confirmed on 02/06/2024 12:52:22 (ET). Electronically Signed: Tj Vela MD at 12:51 EDT , Head/Neck CTA 02/06/24 12:32 IMPRESSION: Normal CTA Head and neck with contrast. Electronically Signed: Tj Vela MD at 13:05 EDT , Chest X-Ray 02/06/24 13:13 IMPRESSION: No acute abnormality is seen. Electronically Signed: Tj Vela MD at 13:37 EDT , Brain MRI 02/06/24 13:57 IMPRESSION: 1. Mild involutional change and chronic microvascular deep white matter disease. 2. Focal areas remote lacunar infarct in the centrum semiovale bilaterally. 3. No mass, hemorrhage, or acute territorial infarct. Electronically Signed: Hero Rodriguez MD at 20:48 EDT , Brain CT 02/07/24 00:42 IMPRESSION: No CT evidence of acute intracranial hemorrhage or injury. Mild senescent changes with atherosclerosis compatible with age. Electronically Signed: Dave Singleton MD at 2:40 EDT , Physical Exam Narrative GENERAL: cooperative HEENT: Atraumatic; normocephalic EYES; Anicteric, Normal Conjunctiva NECK; supple, normal thyroid, RESPIRATORY: Diminished to auscultation CARDIOVASCULAR: Regular S1 S2, GI: soft, normoactive bowel sounds, : No Renal angle tenderness; EXTREMITIES: No edema, no clubbing, MUSCULOSKELETAL: no muscle wasting NEURO: Awake; left-sided neglect SKIN: No Rash PSYCH; Flat affect Assessment & Plan Assessment/Plan (1) Bradycardia, severe sinus: (2) Syncope: QUALIFIERS: Syncope type: unspecified Qualified Code(s): R55 - Syncope and collapse (3) Expressive aphasia: (4) Presence of stent in coronary artery: (5) Type 2 diabetes mellitus: QUALIFIERS: Diabetes mellitus complication status: with hyperglycemia Diabetes mellitus fpc 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 Acute CVA ? MRI did show Mild involutional change and chronic microvascular deep white matter disease. Focal areas remote lacunar infarct in the centrum semiovale bilaterally. No mass, hemorrhage, or acute territorial infarct. Patient admitted to intensive care unit treatment initiated with antiplatelet statin therapy and permissive hypertension consult placed to telemetry neuro Case discussed with Dr. Medina from [facility] 2. New onset seizures ? Questionable status epilepticus. Patient loaded with Keppra arrangement made for patient to be transferred to [facility] for continuous EEG monitoring 3. Bradycardia ? With syncopal episode patient was on beta-blockers held seen in consultation by cardiology 4. Diabetes mellitus type II -patient's oral hypoglycemics held. Placed on long acting insulin, Accu-Cheks a.c. and at bedtime and covered with sliding scale insulin 5. Dyslipidemia -Patient is on statin therapy, continued at home dose #6. Coronary artery disease ? With previous CABG and PCI. Patient is on guideline directed medical therapy 7. Essential hypertension ? Patient currently being managed with permissive hypertension 8. Class I obesity with BMI of 33.5 ? Complicating care weight loss advised 9. DVT prophylaxis - On enoxaparin Time spent in the patient's overall evaluation,decision-making process, review of diagnostic data, adjustment of management, discussion with other providers, nursing nursing and ancillary staff involved in patient's care documentation, 55 minutes Charges/Coding Visit Charges Inpatient E&M: [id number] [facility]
[2024-02-07] MEDS: Insulin Lispro 100 UNIT/ML INSULN.PEN SC ×2 (07:56→11:48)
[2024-02-07] MEDS: Insulin Lispro 100 UNIT/ML INSULN.PEN 10 UNIT SC ×2 (07:57→11:49)
[2024-02-07] MEDS: Citalopram 40 MG TABLET PO (07:59)
[2024-02-07] MEDS: Aspirin 81 MG TAB.CHEW PO (07:59)
--- NOTE | 2024-02-07 08:00 | CON.PCM.NE_ITS ---
Assessment and Plan: Neuro Assessment/Plan TERESE TIRADO is a 68 F with a past medical history of HTn, DM2, being evaluated by Teleneurology for seizure. On history, pt has been having change in mental status and gaze deviation with episode sof bradycardia with normal imaging including MRI which is concerning for seizures. This is new onset seizures and unclear why. Exam is concerning for intermittent R parietal seizure.s Imaging unremarkable. EEG with subclinical seizures on the R. Plan: - please obtain LP with cell count, cultures, protein, glucose, and meningitis panel, cytology - complete Keppra 40mg/kg (4000mg total) load of Keppra and cont KEppra 1000mg BID. Transfer to [facility] for the following reasons: LTM (continuous EEG) I personally attended this patient and spent a total time of 75 minutes evaluating this patient including clinical assessment, review of chart, medical history imaging, and determining appropriate treatment and workup. HPI Consult Data Date of Consult: 02/07/24 HPI Narrative HPI Narrative: TERESE TIRADO, is a 68 y/o hx CAD s/p PCI in 2017, HTN, DMII, who presented to [facility] ED 02/06/2024 with right-sided headache intermittently for 3 days. In EMS she was noted to have left-sided neglect and then had bradycardia with heart rate 20s to 30s and syncopal episode in ED. Was brought to the ED and had another syncopal episode with heart rate 20s to 30s and also developed left eye deviation and slurred speech in the ED. Patient back to normal rate/normal sinus rhythm and cardiology contacted in ED and it was recommended to hold beta-emmett and monitor closely as this could been vasovagal given other present medical complaints and that she would be seen in consultation, stroke neurologist also evaluated and given unclear timing of hemineglect patient not TNK candidate and was advised workup for further stroke evaluation. Hospitalist contacted for admission. Patient seen with son at bedside and patient reports she woke up with a right-sided headache 3 days ago and the last 8 or 9 hours at a time and she will take Tylenol and have a couple hours of relief before it comes back, will get some tunnel vision in the right eye as well. Upon further questioning this morning she also was unable to read her analog clock and also had difficulty working her phone and getting her close on. Working her phone and getting her close on was a problem this morning and she thinks yesterday is when she had difficulty reading her clock. She does remember the syncopal episode in the EMS and reports she got warm, nauseous, and lightheaded before her syncopal episode for a few minutes and resolution of symptoms when she woke back up and this was treated in the ED as well. Does note the worsening of her neurological symptoms in the ED with slurred speech and stars on the left side of her vision with the stars remaining and patient reports otherwise symptoms have resolved however does seem to be having difficulty with her speech still. She initially said she has not had any chest discomfort but son reports that she has possibly intermittently had some discomfort over the past week or so and she said that this was true but no association with exertion or rest and denies any other warm, lightheaded, nauseous episodes and no other syncopal episodes prior to EMS. Initially said headache was gone however then remarked that she does have still a little bit of aching on the right side but denies any numbness, weakness, tingling denies ever having this. No other acute complaints. Patient with seizure this morning. Rub response team was called because of seizure. Nursing said the patient was seizing from 2 to 3 minutes and then was confused. No known history of seizures. I evaluated the patient, she is awake, she is confused not following commands but her vital signs are currently stable. Patient had MRI earlier today that did not show any acute process though did show old lacunar infarcts. 1 g of IV levetiracetam as well as as needed lorazepam IV. Head CT ordered. Seizure precautions. Neurology consult. Neurologic History: Never had a seizure in the past. Pt was sleeping and went into seizure while in the hospital. Pt came in w RAYMOND initially but no headache now. Normally does not have RAYMOND. Last the sun seemed to trigger the RAYMOND and would have visual aura. Has been having aHA now for a whole week. The RAYMOND never went away. She was taking advil and tylenol several times a day. The RAYMOND never went away completely those days. No neck pain. The RAYMOND located in the [facility]. No sick contacts. Did do to [place] for a week a week ago. No new meds, been on metoprool since 2017 and HR never been low. Pt was taken off her plavix so has not taken plavix - was taken off in July. No new numbness of tingling, no weakness. Has been having discomfort - chest pain - since she has been in the hospital. Normally has some chest pain Currently feels completely back to normal No pacer wires. [facility] Medical History Old myocardial infarction Type 2 diabetes mellitus GERD (gastroesophageal reflux disease) History of non-ST elevation myocardial infarction (NSTEMI) Pure hypercholesterolemia Presence of stent in coronary artery (~02/23/17) Essential hypertension Chest pain, unspecified Atherosclerotic heart disease of [place] coronary artery without angina pectoris Home Medications ?Medication ?Instructions ?Recorded ?Last Taken ?Type citalopram 20 mg tablet 40 mg PO DAILY 02/23/17 Unknown History aspirin 81 mg tablet,delayed 81 mg PO DAILY@0800 #90 tabs 04/08/18 Unknown Rx release atorvastatin 80 mg tablet 80 mg PO QHS #90 tabs 04/08/18 Unknown Rx metoprolol tartrate 50 mg tablet 50 mg PO BID #180 tabs 04/08/18 Unknown Rx blood sugar diagnostic (OneTouch #100 ea 08/14/19 Unknown Rx Ultra Blue Test Strip) pen needle, diabetic 32 gauge x #400 ea 10/01/19 Unknown Rx 5/32 (BD Ultra-Fine Gwen Pen Needle) insulin detemir U-100 100 unit/mL 30 unit subcut DAILY 08/03/20 Unknown History (3 mL) subcutaneous pen trazodone 50 mg tablet 50 mg PO QHS 09/19/22 Unknown History insulin glargine U-300 conc 300 40 unit subcut QHS 02/18/23 Unknown History unit/mL (1.5 mL) subcutaneous pen (Toujeo SoloStar U-300 Insulin) insulin lispro 100 unit/mL 18 unit subcut TID 02/18/23 Unknown History subcutaneous cartridge (Humalog U-100 Insulin) semaglutide 0.25 mg or 0.5 mg (2 2.5 mg subcut DAILY 02/18/23 Unknown History mg/3 mL) subcutaneous pen injector (Ozempic) ramipril 5 mg capsule 5 mg PO BID 02/06/24 Unknown History Allergy/AdvReac Type Severity Reaction Status Date / Time codeine AdvReac Other Verified 02/06/24 12:05 Family History Brother CAD (coronary artery disease) Diabetes High cholesterol Brother , age 50 CAD (coronary artery disease) Myocardial infarction Father CAD (coronary artery disease) Aunt CAD (coronary artery disease) Mother Hypertension Surgical History Presence of coronary angioplasty implant and graft (~02/23/17) History of coronary artery bypass surgery (~02/05/17) History of knee replacement (~2005) History of fusion of cervical spine (~1992) History of hysterectomy (~1991) Social History Smoking Status: Never smoker alcohol intake: current alcohol intake frequency: holidays/special occasions only Alcohol type: wine substance use type: does not use caffeine: Yes Type: carbonated beverages Number of servings: 1 what type of physical activity do you participate in: swimming frequency: 1-2 times per week Vital Signs Vital Signs Vital Signs: 02/06/24 12:05 02/06/24 12:30 02/06/24 12:34 Temperature 98.2 F Temperature Source Oral Pulse Rate 65 62 Pulse Strength Respiratory Rate 18 18 Respiratory Effort Respiratory Depth Respiratory Pattern Blood Pressure 130/64 H 130/66 H Blood Pressure Mean 86 87 Blood Pressure Source Blood Pressure Position Blood Pressure Location Pulse Ox 95 96 95 Oxygen Delivery Method Room Air Room Air Room Air Oxygen Flow Rate (L/min) 02/06/24 12:45 02/06/24 12:51 02/06/24 13:00 Temperature Temperature Source Pulse Rate 66 72 Pulse Strength Respiratory Rate 20 H 17 Respiratory Effort Respiratory Depth Respiratory Pattern Blood Pressure 130/66 H 119/93 H Blood Pressure Mean 87 101 Blood Pressure Source Blood Pressure Position Blood Pressure Location Pulse Ox 95 95 98 Oxygen Delivery Method Room Air Nasal Cannula Room Air Oxygen Flow Rate (L/min) 2 02/06/24 13:30 02/06/24 13:45 02/06/24 14:00 Temperature Temperature Source Pulse Rate 64 63 67 Pulse Strength Respiratory Rate 18 16 16 Respiratory Effort Respiratory Depth Respiratory Pattern Blood Pressure 119/93 H 164/72 H 164/72 H Blood Pressure Mean 101 102 102 Blood Pressure Source Blood Pressure Position Blood Pressure Location Pulse Ox 96 96 97 Oxygen Delivery Method Nasal Cannula Room Air Nasal Cannula Oxygen Flow Rate (L/min) 2 2 02/06/24 14:30 02/06/24 15:00 02/06/24 15:00 Temperature 97.4 F L Temperature Source Oral Pulse Rate 73 75 75 Pulse Strength Respiratory Rate 16 19 H 19 H Respiratory Effort Respiratory Depth Respiratory Pattern Blood Pressure 132/59 H 132/59 H 132/59 H Blood Pressure Mean 83 83 83 Blood Pressure Source Blood Pressure Position Blood Pressure Location Pulse Ox 95 93 93 Oxygen Delivery Method Nasal Cannula Oxygen Flow Rate (L/min) 2 02/06/24 15:10 02/06/24 15:23 02/06/24 15:38 Temperature 97.8 F 97.7 F L Temperature Source Temporal Pulse Rate 71 68 68 Pulse Strength Respiratory Rate 16 7 L 15 Respiratory Effort Respiratory Depth Respiratory Pattern Blood Pressure 132/59 H 129/82 H 171/81 H Blood Pressure Mean 83 97 111 Blood Pressure Source Monitor Monitor Blood Pressure Position Semi-Fowlers Semi-Fowlers Blood Pressure Location Left Arm Left Arm Pulse Ox 96 96 96 Oxygen Delivery Method Room Air Room Air Oxygen Flow Rate (L/min) 02/06/24 15:53 02/06/24 16:08 02/06/24 16:23 Temperature Temperature Source Pulse Rate 68 68 67 Pulse Strength Respiratory Rate 15 15 16 Respiratory Effort Respiratory Depth Respiratory Pattern Blood Pressure 176/81 H 151/78 H 151/78 H Blood Pressure Mean 112 102 102 Blood Pressure Source Monitor Monitor Monitor Blood Pressure Position Semi-Fowlers Semi-Fowlers Semi-Fowlers Blood Pressure Location Left Arm Left Arm Left Arm Pulse Ox 96 95 97 Oxygen Delivery Method Room Air Room Air Room Air Oxygen Flow Rate (L/min) 02/06/24 16:53 02/06/24 17:23 02/06/24 18:00 Temperature Temperature Source Pulse Rate 65 65 65 Pulse Strength Respiratory Rate 17 19 H Respiratory Effort Respiratory Depth Respiratory Pattern Blood Pressure 160/80 H 173/76 H Blood Pressure Mean 106 108 Blood Pressure Source Monitor Monitor Blood Pressure Position Semi-Fowlers Semi-Fowlers Blood Pressure Location Left Arm Left Arm Pulse Ox 96 97 Oxygen Delivery Method Room Air Room Air Oxygen Flow Rate (L/min) 02/06/24 18:23 02/06/24 19:23 02/06/24 20:23 Temperature Temperature Source Pulse Rate 65 61 61 Pulse Strength Respiratory Rate 16 17 15 Respiratory Effort Respiratory Depth Respiratory Pattern Blood Pressure 148/78 H 144/91 H 131/74 H Blood Pressure Mean 101 108 93 Blood Pressure Source Monitor Monitor Monitor Blood Pressure Position Semi-Fowlers Semi-Fowlers Semi-Fowlers Blood Pressure Location Left Arm Left Arm Left Arm Pulse Ox 97 94 95 Oxygen Delivery Method Room Air Room Air Room Air Oxygen Flow Rate (L/min) 02/06/24 21:00 02/06/24 21:13 02/06/24 22:00 Temperature 98.2 F Temperature Source Temporal Pulse Rate 66 68 Pulse Strength Normal (2+) Respiratory Rate 16 18 Respiratory Effort Respiratory Depth Respiratory Pattern Blood Pressure 127/95 H 114/61 Blood Pressure Mean 105 78 Blood Pressure Source Monitor Monitor Blood Pressure Position Semi-Fowlers Semi-Fowlers Blood Pressure Location Left Arm Left Arm Pulse Ox 95 95 Oxygen Delivery Method Room Air Room Air Oxygen Flow Rate (L/min) 02/06/24 22:00 02/06/24 23:00 02/07/24 00:00 Temperature 97.6 F L Temperature Source Temporal Pulse Rate 60 60 Pulse Strength Respiratory Rate 14 13 Respiratory Effort Normal Non-Labored Respiratory Depth Normal Respiratory Pattern Normal Blood Pressure 107/48 L 106/47 L Blood Pressure Mean 67 66 Blood Pressure Source Monitor Monitor Blood Pressure Position Semi-Fowlers Semi-Fowlers Blood Pressure Location Left Arm Right Arm Pulse Ox 94 92 Oxygen Delivery Method Room Air Room Air Room Air Oxygen Flow Rate (L/min) 02/07/24 01:00 02/07/24 02:00 02/07/24 02:00 Temperature Temperature Source Pulse Rate 76 68 Pulse Strength Respiratory Rate 14 14 Respiratory Effort Normal Non-Labored Respiratory Depth Normal Respiratory Pattern Normal Blood Pressure 137/60 H 95/56 L Blood Pressure Mean 85 69 Blood Pressure Source Monitor Monitor Blood Pressure Position Semi-Fowlers Semi-Fowlers Blood Pressure Location Right Arm Right Arm Pulse Ox 94 96 Oxygen Delivery Method Room Air Room Air Nasal Cannula Oxygen Flow Rate (L/min) 2 02/07/24 03:00 02/07/24 04:00 02/07/24 05:00 Temperature 97.9 F Temperature Source Temporal Pulse Rate 60 63 61 Pulse Strength Respiratory Rate 14 14 13 Respiratory Effort Respiratory Depth Respiratory Pattern Blood Pressure 103/59 L 113/44 L 111/52 L Blood Pressure Mean 73 67 71 Blood Pressure Source Monitor Monitor Monitor Blood Pressure Position Semi-Fowlers Semi-Fowlers Semi-Fowlers Blood Pressure Location Right Arm Right Arm Right Arm Pulse Ox 99 98 99 Oxygen Delivery Method Nasal Cannula Nasal Cannula Nasal Cannula Oxygen Flow Rate (L/min) 2 2 2 02/07/24 05:17 02/07/24 06:00 02/07/24 07:00 Temperature Temperature Source Pulse Rate 67 60 Pulse Strength Respiratory Rate 15 14 Respiratory Effort Normal Non-Labored Respiratory Depth Normal Respiratory Pattern Normal Blood Pressure 97/51 L 94/62 Blood Pressure Mean 66 72 Blood Pressure Source Monitor Monitor Blood Pressure Position Semi-Fowlers Semi-Fowlers Blood Pressure Location Right Arm Right Arm Pulse Ox 99 97 Oxygen Delivery Method Nasal Cannula Nasal Cannula Nasal Cannula Oxygen Flow Rate (L/min) 2 2 2 Weight Weight: 85.9 kg Body Mass Index (BMI) 33.5 EEG Results Procedure Details EEG Procedure Details: TERESE TIRADO is a 68 year old F with a past medical history of , who presents for evaluation of Electroencephalogram on DATE at TIME NIHSS NIHSS Nursing Documentation NIHSS Nursing Documentation: NIH Stroke Scale Start: 02/06/24 12:11 Freq: Status: Discharge Protocol: Activity Type Activity Date Activity User E-sign Co-sign Detail Recorded Client Recorded Date Recorded By Document 02/06/24 12:12 [facility] [id number] 02/06/24 12:15 [facility] 02/06/24 12:12 NIH Stroke Scale [NIHSS] A score of 0 is normal or asymptomatic . Total possible score is 42. Inpatient: RN or Physician to activate a stroke alert for onset of new stroke symptoms or with NIHSS increase >/= 3 points. Following change in neurological status, NIHSS will be performed per physician order or more frequently PRN. -1a. Level of Consciousness Alert; keenly responsive -1b. LOC Questions Answers BOTH questions correctly. -1c. LOC Commands Performs both tasks correctly . -2. Best Gaze Normal -3. Visual Partial hemianopia -4. Facial Palsy Normal symmetrical movements -5a. Left Arm No drift; arm holds 90 (or 45 ) degrees for full 10 seconds -5b. Right Arm No drift; arm holds 90 (or 45 ) degrees for full 10 seconds -6a. Left Leg No drift; leg holds 30-degree position for full 5 seconds -6b. Right Leg No drift; leg holds 30-degree position for full 5 seconds -7. Limb Ataxia Absent -8. Sensory Normal; no sensory loss -9. Best Language No aphasia; normal -10. Dysarthria Normal -11. Extinction and Inattention Visual, tactile , auditory, spatial, or personal inattention -Total 2 Query Text:A score of 0 is normal or asymptomatic. Total possible score is 42 . ED: Notify Physician for NIHSS increase by > / = 3 points. Inpatient: RN or Physician to activate a stroke alert for NIHSS increase of > / = 3 points. NIHSS: Ischemic Stroke/TIA Start: 02/06/24 15:38 Text: For PCU Patients: NIH and Neuro Check every 4 Status: Active hours, PRN and with change in RN caregiver. Freq: [id number] Protocol: Activity Type Activity Date Activity User E-sign Co-sign Detail Recorded Client Recorded Date Recorded By Document 02/07/24 05:19 [facility] desktop 02/07/24 05:20 [facility] 02/07/24 05:19 -1a. Level of Consciousness Not alert; -1b. LOC Questions Answers BOTH questions correctly. -1c. LOC Commands Performs both tasks correctly . -2. Best Gaze Normal -3. Visual No visual loss -4. Facial Palsy Minor paralysis (flattened nasolabial fold , asymmetry on smiling) -5a. Left Arm No drift; arm holds 90 (or 45 ) degrees for full 10 seconds -5b. Right Arm No drift; arm holds 90 (or 45 ) degrees for full 10 seconds -6a. Left Leg No drift; leg holds 30-degree position for full 5 seconds -6b. Right Leg No drift; leg holds 30-degree position for full 5 seconds -7. Limb Ataxia Absent -8. Sensory Normal; no sensory loss -9. Best Language No aphasia; normal -10. Dysarthria Mild-to- moderate dysarthria; -11. Extinction and Inattention No abnormality -Total 3 Query Text:A score of 0 is normal or asymptomatic. Total possible score is 42 . ED: Notify Physician for NIHSS increase by > / = 3 points. Inpatient: RN or Physician to activate a stroke alert for NIHSS increase of > / = 3 points. NIHSS: Ischemic Stroke/TIA Start: 02/06/24 15:38 Text: For ICU Patients: NIH sroke scale at Status: Complete presentation and every 2 hours or with change in RN caregiver Freq: [id number] Protocol: Activity Type Activity Date Activity User E-sign Co-sign Detail Recorded Client Recorded Date Recorded By Document 02/06/24 16:00 LW [id number] 02/06/24 16:09 LW 02/06/24 16:00 -1a. Level of Consciousness Alert; keenly responsive -1b. LOC Questions Answers BOTH questions correctly. -1c. LOC Commands Performs both tasks correctly . -2. Best Gaze Normal -3. Visual Partial hemianopia -4. Facial Palsy Normal symmetrical movements -5a. Left Arm No drift; arm holds 90 (or 45 ) degrees for full 10 seconds -5b. Right Arm No drift; arm holds 90 (or 45 ) degrees for full 10 seconds -6a. Left Leg No drift; leg holds 30-degree position for full 5 seconds -6b. Right Leg No drift; leg holds 30-degree position for full 5 seconds -7. Limb Ataxia Absent -8. Sensory Normal; no sensory loss -9. Best Language No aphasia; normal -10. Dysarthria Mild-to- moderate dysarthria; -11. Extinction and Inattention No abnormality -Total 2 Query Text:A score of 0 is normal or asymptomatic. Total possible score is 42 . ED: Notify Physician for NIHSS increase by > / = 3 points. Inpatient: RN or Physician to activate a stroke alert for NIHSS increase of > / = 3 points. Physical Exam Narrative -? General: Laying comfortably in bed; in no acute distress. -? HENT: Normal oropharynx and mucosa. Normal external appearance of ears and nose. Exophthalmos. -? Neck: Supple, no pain or tenderness -? CV:? No peripheral edema. -? Pulmonary:? Normal respiratory effort. -? Ext: No cyanosis, edema, or deformity -? Skin: No rash. Normal palpation of skin.? -? Musculoskeletal: full range of motion; no joint tenderness. Normal digits and nails by inspection. No clubbing. -? NEURO: -? Mental Status: The patient was alert and oriented to time, place, and person. -? Language: speech is intermittently dysarthric.? Naming, repetition, fluency, and comprehension intact. -? Cranial Nerves: R gaze preference, able to cross midline but has difficulty, visual self full, no facial asymmetry, facial sensation intact, hearing intact, tongue midline, no evidence of atrophy or fibrillations. -? Motor: normal bulk, tone, and strength throughout. No pronator drift or satelliting. Upper extremities equal bilaterally. LLE weakness -? Detailed strength exam as performed by the nurse/PAULA and witnessed by the physician: l R L SA 5 5 EE EF WE WF Associate Research Scientist 4 5 HF 5 3 KE KF DF PF Neglect LLE weakness -? Tone: is normal and bulk is normal -? Sensation- Intact to light touch bilaterally, there is extinction on the L -? Coordination: No dysmetria on [id number], finger follow finger or [id number]. -? Gait- deferred Lab / Micro Data 02/07/24 04:45 02/07/24 04:45 Labs: Laboratory Results - last 24 hr 02/06/24 12:28: WBC 8.0, RBC 4.53, Hgb 13.3, Hct 40.5, MCV 89.4, MCH 29.4, MCHC 32.8, RDW Std Deviation 44.2 H, RDW Coeff of Suni 13.4, Plt Count 189, MPV 11.8, Immature Gran % (Auto) 0.300, Neut % (Auto) 53.2, Lymph % (Auto) 35.1, [place] % (Auto) 10.3 H, Eos % (Auto) 0.6, Baso % (Auto) 0.5, Absolute Neuts (auto) 4.3, Absolute Lymphs (auto) 2.80, Nucleated RBC % 0, PT 13.5, INR 1.0, APTT 24.0 L, S odium 133 L, Potassium 4.2, Chloride 104, Carbon Dioxide 25.0, Anion Gap 4 L, BUN 11, Creatinine 1.14 H, Estim Creat Clear Calc 48.83, Est GFR (MDRD) Af Amer 60, Est GFR (MDRD) Non-Af 50 L, BUN/Creatinine Ratio 9.6 L, Glucose 413 H, H emoglobin A1c 11.4 H, Calcium 9.3, Magnesium 2.0, Troponin I High Sens 18, TSH 2.79 02/06/24 12:37: POC Glucose 353 H 02/06/24 14:56: ESR Cancelled, Total Bilirubin 1.10 H, Direct Bilirubin 0.20, AST 15, ALT 35, Alkaline Phosphatase 70, Troponin I High Sens 19, C-React Prot Ext Range < 2.90, Total Protein 7.1, Albumin 3.3, Globulin 3.8 02/06/24 15:36: POC Glucose 329 H 02/06/24 18:30: ESR 18 02/06/24 20:56: POC Glucose 245 H 02/07/24 04:45: WBC 8.1, RBC 4.18 L, Hgb 12.5, Hct 37.7, MCV 90.2, MCH 29.9, MCHC 33.2, RDW Std Deviation 44.8 H, RDW Coeff of Suni 13.6, Plt Count 154, MPV 11.4, Immature Gran % (Auto) 0.200, Neut % (Auto) 54.5, Lymph % (Auto) 36.6, [place] % (Auto) 7.9, Eos % (Auto) 0.4, Baso % (Auto) 0.4, Absolute Neuts (auto) 4.4, Absolute Lymphs (auto) 2.96, Nucleated RBC % 0, Sodium 137, Potassium 4.2, Chloride 108 H, Carbon Dioxide 22.0, Anion Gap 7, BUN 9, Creatinine 1.09 H, Estim Creat Clear Calc 49.28, Est GFR (MDRD) Af Amer 64, Est GFR (MDRD) Non-Af 53 L, BUN/Creatinine Ratio 8.3 L, Glucose 287 H, Calcium 8.6, Total Bilirubin 1.20 H, AST 17, ALT 29, Alkaline Phosphatase 54, Total Protein 6.2 L, Albumin 3.0 L, Globulin 3.2, Albumin/Globulin Ratio 0.9, Triglycerides 325 H, Cholesterol 147, LDL Cholesterol 37, VLDL Cholesterol 65 H, HDL Cholesterol 45 Imaging Radiology Impression Brain CT 02/06/24 12:29 IMPRESSION: Chronic involutional changes of the brain. Electronically Signed: Tj Vela MD at 12:51 EDT , ADDENDUM: 02/06/24 1259 IMPRESSION: Chronic involutional changes of the brain. N.B. : The above Results were Read Back by Tj Vela MD to Dr Zeb MD, and understanding confirmed on 02/06/2024 12:52:22 (ET). Electronically Signed: Tj Vela MD at 12:51 EDT , Head/Neck CTA 02/06/24 12:32 IMPRESSION: Normal CTA Head and neck with contrast. Electronically Signed: Tj Vela MD at 13:05 EDT , Chest X-Ray 02/06/24 13:13 IMPRESSION: No acute abnormality is seen. Electronically Signed: Tj Vela MD at 13:37 EDT , Brain MRI 02/06/24 13:57 IMPRESSION: 1. Mild involutional change and chronic microvascular deep white matter disease. 2. Focal areas remote lacunar infarct in the centrum semiovale bilaterally. 3. No mass, hemorrhage, or acute territorial infarct. Electronically Signed: Hero Rodriguez MD at 20:48 EDT , Brain CT 02/07/24 00:42 IMPRESSION: No CT evidence of acute intracranial hemorrhage or injury. Mild senescent changes with atherosclerosis compatible with age. Electronically Signed: Dave Singleton MD at 2:40 EDT , Active Medications Active Medications Active Medications: Current Medications Generic Name Dose Route Start Last Admin Trade Name Freq PRN Reason Stop Dose Admin Acetaminophen 650 mg 02/06/24 15:38 Acetaminophen 325 Mg Tablet PO Q6H PRN PRN Pain 1-10 Or Fever >100.7 Albuterol Sulfate 2.5 mg 02/06/24 15:38 Albuterol 2.5 Mg/3 Ml Vial.Neb. INHALATION Q2H PRN PRN SOB &/OR WHEEZING Aspirin 81 mg 02/07/24 08:00 02/07/24 07:59 Aspirin 81 Mg Tab.Chew PO 81 mg BREAKFAST JEFF Administration Atorvastatin Calcium 80 mg 02/06/24 22:00 02/06/24 21:03 Atorvastatin Calcium 80 Mg Tablet PO 80 mg QHS JEFF Administration Citalopram Hydrobromide 40 mg 02/07/24 10:00 02/07/24 07:59 Citalopram 40 Mg Tablet PO 40 mg DAILY JEFF Administration Glucagon 1 mg 02/06/24 15:38 Glucagon 1 Mg/Ml Syringe IM X1 PRN HYPOGLYCEMIA Protocol Hydralazine HCl 5 mg 02/06/24 15:38 Hydralazine 20 Mg/Ml Vial IV 02/07/24 15:38 Q30M PRN maintain BP parameters with HR <60 Dextrose 250 mls @ 0 mls/hr 02/06/24 15:38 Dextrose 10%-Water IV .Q0M PRN HYPOGLYCEMIA Protocol As Directed Insulin Glargine 30 unit 02/06/24 22:00 02/06/24 21:04 Insulin Glargine-Yfgn 100 Unit/Ml Pen SC 30 unit QHS JEFF Administration Insulin Human Lispro 0 unit 02/06/24 16:00 02/07/24 07:56 Insulin Lispro 100 Unit/Ml Insuln.Pen SC 6 units ACHS JEFF Administration Protocol Insulin Human Lispro 10 unit 02/07/24 07:00 02/07/24 07:57 Insulin Lispro 100 Unit/Ml Insuln.Pen SC 10 u TIDAC JEFF Administration Lorazepam 2 mg 02/07/24 00:44 02/07/24 00:51 Lorazepam 2 Mg/Ml Syringe IV 2 mg Q2H PRN PRN Administration SEIZURES Melatonin 3 mg 02/06/24 15:38 Melatonin 3 Mg Tablet PO QHS PRN PRN INSOMNIA Oxycodone HCl 2.5 mg 02/06/24 15:38 Oxycodone 5 Mg Tablet PO Q4H PRN PRN Pain Score 4-10 Senna/Docusate Sodium 2 tablet 02/06/24 15:38 Senna/Docusate Sodium 1 Tablet PO BID PRN Constipation Sodium Chloride 10 - 40 ml 02/06/24 16:01 0.9% Saline Lock 10 Ml Syringe IV UD PRN SALINE FLUSH Trazodone HCl 50 mg 02/06/24 22:00 02/06/24 21:03 Trazodone 50 Mg Tablet PO 50 mg QHS JEFF Administration
[2024-02-07 08:21] LABS: Bedside Glucose 268 mg/dL (74-106)
[2024-02-07] MEDS: Acetaminophen 325 MG Tablet 650 MG PO (09:12)
--- NOTE | 2024-02-07 09:19 | CASEMGMT ---
Per ICU rounds, the plan is for this pt to transfer to a tertiary facility ([facility]) for a higher level of care. Insurance review for hospitals in-network with Farhad WOLFE is as follows: [facility], [place], [facility], [facility], [facility], [facility], [facility], [facility], [facility]), and .
--- NOTE | 2024-02-07 09:37 | CYSPIN_PTH ---
PATIENT: TERESE TIRADO LOC: ICU U#:[id number] AGE/SX: 68/F ROOM: ICU02 RE02/06/[address]: Dr. Daron Gill MD : 1955 BED: 1 DIS: 02/07/2024 SPEC #: [id number] RECD: 02/10/24 07:34 STATUS: JENNY REQ #: [id number] MANDA: 02/07/24 09:[address]: Daron Gill DEPT: CYTOLOGY RECD BY: Shari Lawton ENTERED: 02/10/24 07:35 SP TYPE: CYSPIN FL OTHR DR: MD Dr. Jeronimo Calabrese MD Archana Hinduja, MD Dr. Allison Jordan, DO Dr. Alicia Zha, MD Danielle Becker, MD Dr. Deepak Gulati, MD Dr. Hera Kamdar, MD Dr. Jan Bittar, MD Dr. James Burke, MD Jesse Mindel, MS MD Aracelis Martinez MD LEBRON PAIGE, MD Margaret Beigel, MD Dr. Matthew Gusler, MD Dr. Maryam Mian, MD Dr. Mohamed Ridha, MD Dr. Mhd Ezzat Zaghlouleh, MD Nabil Khandker, MD Dr. Nagapradee Nagajothi, MD Dr. Paul Nielsen, MD Dr. Paige Pierce, MD Dr. Peter Robinson, MD Dr. Rami Ibrahim, MD Dr. Sushil Lakhani, MD Sarita Maturu, MD Dr. Vivien Lee, MD Yousef Hannawi, MD Tissues: Cerebrospinal Fluid Procedures: Pap Stain (control) Special Stain Group II Cytospin Fluid HEADER OPERATION: Cerebrospinal fluid PRE-OP DIAGNOSIS: Bradycardia, syncope, CVA TISSUE SUBMITTED: Cerebrospinal fluid for cytology DIAGNOSIS CYTOLOGY Cerebrospinal fluid for cytology (cytospin): Negative for malignant cells. See comment. SJ/mr 02/10/2024 COMMENT The specimen is bloody. Clinical correlation and appropriate follow up are necessary. CYTOLOGY STUDY Slides are reviewed. CYTOLOGY GROSS Received is 2.0 cc of colorless fluid labeled with the patient's name and and designated per the requisition as Cerebrospinal fluid. Submitted for cytology preparation including cell block. 02/10/2024 TC:5 CPT: 05236
--- NOTE | 2024-02-07 10:01 | CASEMGMT ---
Social Work SW met with pt with son and dgt in law in the room. SW introduced self and role of SW. SW discussed advance directives with pt who states she is uncertain if she has completed these documents but is requesting they be done at this time. SW explained Living Will and HCPOA and assisted pt in completing documents. Pt naming her son Skyler Mckeon as HCPOA. Originals given to pt and copies placed on pt chart. OFELIA Barnhart
[2024-02-07] MEDS: Lidocaine 2% (5ml sdv) 5 ML VIAL.MPF INFILT (10:55)
--- NOTE | 2024-02-07 11:13 | PCM.OP.PRO ---
Procedure Report Date of Procedure: 02/07/24 Assessment & Plan Assessment/Plan (1) Seizure: PLAN: PROCEDURE: Fluoroscopic guided Lumbar Puncture. ORDERING PROVIDER: Dr. Gill CLINICAL INDICATION: Female, 68 years old. Seizure. PROVIDER: LATASHA Damon MEDICATIONS: 2% lidocaine administered subcutaneously for local anesthesia ACCESS SITE: Lower posterior back. NEEDLE: 20-gauge spinal needle. SPECIMEN: Approximately 8 mL clear colored CSF fluid. COMPLICATIONS: None immediate. FLUOROSCOPY TIME (if supplied): 0 minutes/54 seconds. 27.47 mGy The risks, benefits, and alternatives to the procedure were explained to the patient. The specific risks of bleeding, infection, and neurovascular injury were detailed and accepted. Witnessed informed consent was obtained. The patient was placed on the fluoroscopic table in the prone position. The level for needle entry was determined and marked. The overlying skin was cleaned and prepped in the usual sterile fashion. 2% lidocaine was administered subcutaneously for local anesthesia. Under fluoroscopic guidance a 20-gauge spinal needle was advanced. The thecal sac was entered at the L 2-L 3 vertebral level. The inner stylet was removed. There was spontaneous flow of clear CSF fluid. The patient was placed in a reversed Trendelenburg position. Approximately 8 mL of cerebrospinal fluid was collected using gravity. The specimen was collected and submitted to the laboratory for further evaluation. The needle was withdrawn. Hemostasis was achieved and a sterile dressing placed. The patient tolerated the procedure well without any immediate complications. The patient was placed supine for nursing observation in the holding bay. IMPRESSION: Successful fluoroscopic-guided lumbar puncture. Procedures Radiology Radiology Xray Procedures: 97904 Lumbar Puncture Dx Multi Select Codes Radiology Rad Xray Procedures: [id number] Fluoroscopic guidance for needle placement
[2024-02-07 11:16] LABS: Cytology, Body Fluid / CSF SEE PATHOLOGY REPORT
[2024-02-07 11:55] LABS: Glucose Spinal Fluid 150 mg/dL (40-75)
--- NOTE | 2024-02-07 12:06 | CT_ITS ---
STUDY: CT BRAIN WITHOUT CONTRAST REASON FOR EXAM: Female, 68 years old. Change in condition RADIATION DOSAGE (If Supplied By Facility): CTDIvol = ( 44.99 ) mGy, DLP = ( 748.30 ) mGycm TECHNIQUE: Transaxial CT imaging of the brain was performed without administration of intravenous contrast material. Individualized dose optimization techniques were used for this CT. COMPARISON: Comparison is made with prior study dated February 07, 2004 at 1:07 AM. FINDINGS: Normal soft tissue structures. Normal calvarium. Normal size ventricles and extra-axial spaces for the patient''s age. Normal white matter tracts of the cerebral hemispheres. Tiny lacunar in the left thalamus. This is unchanged. Normal brainstem. Normal cerebellum. There is no intracranial hemorrhage. There are no findings of an acute ischemic infarction. Atherosclerotic calcification of the cavernous portions of the internal carotid arteries bilaterally. Small polyp or retention cyst along the inferior medial wall of the right maxillary sinus. Small polyp or retention cyst along the anterior medial aspect of the left maxillary sinus. CT/Brain/Head without Contrast IMPRESSION: Chronic involutional changes of the brain. Tiny lacuna in the left thalamus. This is unchanged. Electronically Signed: Tj Vela MD at 12:23 EDT ,
[2024-02-07 12:15] LABS: Appearance CSF (character) CLEAR (Clear); CSF Color COLORLESS (Colorless); Tested Tube # 3
[2024-02-07 12:17] LABS: RBC Count, Spinal Fluid 140 /mm-3 (None seen); White Count, CSF 2 /mm-3 (0 - 5)
[2024-02-07 12:40] LABS: Bedside Glucose 192 mg/dL (74-106)
[2024-02-07 13:48] LABS: Lymphocytes,CSF 49 % (40 - 80); Monocytes,CSF 27 % (15 - 45); Neutrophils,CSF 24 % (0 - 6)
[2024-02-07 13:49] LABS: Body Fluid QC Type(s) BF2Q,BF3Q
[2024-02-07] MEDS: Enoxaparin 40 MG/0.4 ML Syringe SC (14:01)
[2024-02-07] MEDS: levETIRAcetam IV 2,000 MG in 0.9% Normal Saline (250mL Bag) 230 ML 1000 MG IV (14:01)
--- NOTE | 2024-02-07 14:54 | DS.PCM_ITS ---
Providers Date of Admission: 02/06/24 Date of Discharge: 02/07/24 Primary Care Physician: Dr. Thien Baeza MD Consultations 02/06/24 15:38 Consult: Cardiology Routine Consulting Provider: Reena Mariano Reason for Consult: bradycardia, syncope EMERGENT Consult: No Notified: Yes Date Notified: 02/06/24 Time Notified: 13:55 Method of Notification: ED Physician Initiated Consult: Tele-Neurology Routine Consulting Provider: [facility] Reason for Consult: Acute Ischemic Stroke/TIA, seen in ED EMERGENT Consult: No Notified: No Date Notified: 02/06/24 Time Notified: 13:49 Nursing Unit Staff Notify [facility] of Tele-Neurology Consult: Yes 02/07/24 00:53 Consult: Tele-Neurology Routine Consulting Provider: [facility] Reason for Consult: seizure EMERGENT Consult: No Notified: Yes Date Notified: 02/07/24 Time Notified: 00:53 Method of Notification: Answering Service Nursing Unit Staff Notify [facility] of Tele-Neurology Consult: Yes Reason For Visit: BRADYCARDIA, SYNCOPE, CVA Diagnosis Discharge Diagnosis (1) Bradycardia, severe sinus: Status: Acute Code(s): R00.1 - Bradycardia, unspecified (2) Syncope: Status: Acute Code(s): R55 - Syncope and collapse Qualifiers: Syncope type: unspecified Qualified Code(s): R55 - Syncope and collapse (3) Expressive aphasia: Status: Acute Code(s): R47.01 - Aphasia (4) Presence of stent in coronary artery: Status: Chronic Code(s): Z95.5 - Presence of coronary angioplasty implant and graft (5) Type 2 diabetes mellitus: Status: Chronic Code(s): E11.9 - Type 2 diabetes mellitus without complications Qualifiers: Diabetes mellitus complication status: with hyperglycemia Diabetes mellitus intermediate insulin use: with long filler cigar roller machine use Qualified Code(s): E11.65 - Type 2 diabetes mellitus with hyperglycemia; Z79.4 - long term care social worker (current) use of insulin Plan Patient is a 68-year-old lady admitted with expressive aphasia and left-sided neglect and severe right-sided headache 1. Acute CVA ? MRI did show Mild involutional change and chronic microvascular deep white matter disease. Focal areas remote lacunar infarct in the centrum semiovale bilaterally. No mass, hemorrhage, or acute territorial infarct. Patient admitted to intensive care unit treatment initiated with antiplatelet statin therapy and permissive hypertension consult placed to telemetry neuro Case discussed with Dr. Medina from [facility] 2. New onset seizures ? Questionable status epilepticus. Patient loaded with Keppra arrangement made for patient to be transferred to [facility] for continuous EEG monitoring 3. Bradycardia ? With syncopal episode patient was on beta-blockers held seen in consultation by cardiology 4. Diabetes mellitus type II -patient's oral hypoglycemics held. Placed on long acting insulin, Accu-Cheks a.c. and at bedtime and covered with sliding scale insulin 5. Dyslipidemia -Patient is on statin therapy, continued at home dose #6. Coronary artery disease ? With previous CABG and PCI. Patient is on guideline directed medical therapy 7. Essential hypertension ? Patient currently being managed with permissive hypertension 8. Class I obesity with BMI of 33.5 ? Complicating care weight loss advised 9. DVT prophylaxis - On enoxaparin Time spent in the patient's overall evaluation,decision-making process, review of diagnostic data, adjustment of management, discussion with other providers, nursing nursing and ancillary staff involved in patient's care documentation, 55 minutes Medications at Discharge Home Medications citalopram 20 mg tablet 40 mg PO DAILY 02/23/17 aspirin 81 mg tablet,delayed release 81 mg PO DAILY@0800 #90 tabs 04/08/18 atorvastatin 80 mg tablet 80 mg PO QHS #90 tabs 04/08/18 metoprolol tartrate 50 mg tablet 50 mg PO BID #180 tabs 04/08/18 blood sugar diagnostic (OneTouch Ultra Blue Test Strip) #100 ea 08/14/19 pen needle, diabetic 32 gauge x 5/32 (BD Ultra-Fine Gwen Pen Needle) #400 ea 10/01/19 insulin detemir U-100 100 unit/mL (3 mL) subcutaneous pen 30 unit subcut DAILY 08/03/20 trazodone 50 mg tablet 50 mg PO QHS 09/19/22 insulin glargine U-300 conc 300 unit/mL (1.5 mL) subcutaneous pen (Toujeo SoloStar U-300 Insulin) 40 unit subcut QHS 02/18/23 insulin lispro 100 unit/mL subcutaneous cartridge (Humalog U-100 Insulin) 18 unit subcut TID 02/18/23 semaglutide 0.25 mg or 0.5 mg (2 mg/3 mL) subcutaneous pen injector (Ozempic) 2.5 mg subcut DAILY 02/18/23 ramipril 5 mg capsule 5 mg PO BID 02/06/24 Physical Exam Narrative GENERAL: cooperative HEENT: Atraumatic; normocephalic EYES; Anicteric, Normal Conjunctiva NECK; supple, normal thyroid, RESPIRATORY: Diminished to auscultation CARDIOVASCULAR: Regular S1 S2, GI: soft, normoactive bowel sounds, : No Renal angle tenderness; EXTREMITIES: No edema, no clubbing, MUSCULOSKELETAL: no muscle wasting NEURO: Awake; left-sided neglect SKIN: No Rash PSYCH; Flat affect Weight / BMI Weight Weight: 85.9 kg Body Mass Index (BMI) 33.5 ABG / Lab / Microbiology Data 02/07/24 04:45 02/07/24 04:45 Laboratory: Laboratory Results - last 24 hr 02/06/24 14:56: ESR Cancelled, Total Bilirubin 1.10 H, Direct Bilirubin 0.20, AST 15, ALT 35, Alkaline Phosphatase 70, Troponin I High Sens 19, C-React Prot Ext Range < 2.90, Total Protein 7.1, Albumin 3.3, Globulin 3.8 02/06/24 15:36: POC Glucose 329 H 02/06/24 18:30: ESR 18 02/06/24 20:56: POC Glucose 245 H 02/07/24 04:45: WBC 8.1, RBC 4.18 L, Hgb 12.5, Hct 37.7, MCV 90.2, MCH 29.9, MCHC 33.2, RDW Std Deviation 44.8 H, RDW Coeff of Suni 13.6, Plt Count 154, MPV 11.4, Immature Gran % (Auto) 0.200, Neut % (Auto) 54.5, Lymph % (Auto) 36.6, [place] % (Auto) 7.9, Eos % (Auto) 0.4, Baso % (Auto) 0.4, Absolute Neuts (auto) 4.4, Absolute Lymphs (auto) 2.96, Nucleated RBC % 0, Sodium 137, Potassium 4.2, Chloride 108 H, Carbon Dioxide 22.0, Anion Gap 7, BUN 9, Creatinine 1.09 H, Estim Creat Clear Calc 49.28, Est GFR (MDRD) Af Amer 64, Est GFR (MDRD) Non-Af 53 L, BUN/Creatinine Ratio 8.3 L, Glucose 287 H, Calcium 8.6, Total Bilirubin 1.20 H, AST 17, ALT 29, Alkaline Phosphatase 54, Total Protein 6.2 L, Albumin 3.0 L, Globulin 3.2, Albumin/Globulin Ratio 0.9, Triglycerides 325 H, Cholesterol 147, LDL Cholesterol 37, VLDL Cholesterol 65 H, HDL Cholesterol 45 02/07/24 07:55: POC Glucose 268 H 02/07/24 11:00: Fluid Source Cancelled, Fluid Color Cancelled, Fluid Appearance Cancelled, Fluid WBC Cancelled, Fluid RBC Cancelled, Fluid Tot Cell Count Cancelled, Fluid Neutrophils Cancelled, Fluid Lymphocytes Cancelled, Fluid Monocytes Cancelled, Fluid Plasma Cells Cancelled, Fluid Macrophages Cancelled, Fld Mesothelial Cells Cancelled, Fluid Other Cells Cancelled, Fl Pathologist Comment Cancelled, Fluid Comment 2 Cancelled, CSF Appearance CLEAR, CSF Color COLORLESS, CSF WBC 2, CSF RBC 140 H, CSF Cell Count Tube # 3, CSF Total Cell Counted Not Reportable, CSF Neutrophils 24 H, CSF Lymphocytes 49, CSF Monocytes 27, CSF Comment May follow, CSF Glucose 150 H 02/07/24 11:05: Fluid Glucose Cancelled 02/07/24 11:46: POC Glucose 192 H Microbiology: Microbiology 02/07/24 11:00 Csf, Spinal Fluid Gram Stain - Final Radiography Diagnostic Testing: Radiology Impression Brain MRI 02/06/24 13:57 IMPRESSION: 1. Mild involutional change and chronic microvascular deep white matter disease. 2. Focal areas remote lacunar infarct in the centrum semiovale bilaterally. 3. No mass, hemorrhage, or acute territorial infarct. Electronically Signed: Hero Rodriguez MD at 20:48 EDT , Brain CT 02/07/24 00:42 IMPRESSION: No CT evidence of acute intracranial hemorrhage or injury. Mild senescent changes with atherosclerosis compatible with age. Electronically Signed: Dave Singleton MD at 2:40 EDT , Brain CT 02/07/24 12:06 IMPRESSION: Chronic involutional changes of the brain. Tiny lacuna in the left thalamus. This is unchanged. Electronically Signed: Tj Vela MD at 12:23 EDT , D/C Instructions Discharge Diet: No restrictions Discharge Activity: Return to Normal Activity Call your doctor if you observe: Fever of 101 or Higher, Shortness of breath, Fainting spells and Chest pain Meaningful Use Info Meaningful Use Meaningful Use Diagnoses (Choose all that apply): Ischemic CVA CVA Therapy Assessed for PT,OT and/or ST?: Yes Ischemic Stroke Antithrombotic order at d/c?: Yes Dx of Atrial fib/flutter?: No Anticoagulant at discharge?: Yes Statin Dosing Therapy Reference: STATIN DOSE THERAPY REFERENCE: * Patients > 75 years receive moderate or high dose statin therapy. * Patients 75 years or YOUNGER should receive HIGH intensity statin dose unless contraindicated. You will be required to document reason for non-treatment if statin daily dose does not meet guidelines. HIGH DOSE STATIN THERAPY DAILY Atorvastatin > than or = to 40 mg Rosuvastatin > than or = to 20 mg Amlodipine + Atorvastatin > than or = to 2.5/40 mg Ezetimibe + Simvastatin 10/80 mg Simvastatin 80mg Statins at discharge?: Yes If patient is 75 or younger, pt will be discharged on HIGH intensity statin.: Y es Primary Dx Acute Ischemic CVA?: Yes IV thrombolytic ordered during stay?: No Reason IV thrombolytic not ordered: Treatment not Indicated Discharge Plan Admission Admit Date/Time: 02/06/24 13:41 Attending Provider: Daron Gill Primary Care Provider: Thien Baeza Consulting Providers: Reena Mariano; Jeronimo Rapp; Jud Reilly; Ann Marie Garduno; Washington Mari; Anurag Hamlin; Aracelis Forbes; LEONA HENLEY; Kendal Hooks; Mariana Knox; Mike Feldman; Sabi Benton; El Valero; Sara Vernon; Criss Westbrook; Chi Schultz; Felicia Roy; Wiliam Whitley; Dean Vela; Dave Aly; Kavin Morel; Carmineyola Villalba; Gilmer Swenson; Trace Curry; Oren Blas; Annabelle Roger; Ana Wilde; Tanya Lopez Discharge Orders/Prescriptions Prescriptions: Continued insulin detemir U-100 100 unit/mL (3 mL) insulin pen 30 unit SC DAILY Patient Comments: diabetes trazodone 50 mg tablet 50 mg PO QHS Humalog U-100 Insulin 100 unit/mL cartridge 18 unit subcut TID insulin glargine U-300 conc [Toujeo SoloStar U-300 Insulin] 300 unit/mL (1.5 mL) insulin pen 40 unit subcut QHS Patient Comments: INJECT 40 UNITS SUBCUTANEOUSLY DAILY AT BEDTIME. Ozempic 0.25 mg or 0.5 mg (2 mg/3 mL) pen injector 2.5 mg subcut DAILY Patient Comments: INJECT 0.5 MG SUBCUTANEOUSLY ONE TIME PER WEEK citalopram 20 MG tablet 40 mg PO DAILY Patient Comments: mental health ramipril 5 mg capsule 5 mg PO BID aspirin 81 mg tablet,delayed release (DR/EC) 81 mg PO DAILY@0800 Qty: 90 3RF Patient Comments: heart health atorvastatin 80 mg tablet 80 mg PO QHS Qty: 90 3RF metoprolol tartrate 50 mg tablet 50 mg PO BID Qty: 180 3RF (DME) OneTouch Ultra Blue Test Strip Strip See Rx Instructions .ROUTE .MEDSUPPLY Qty: 100 7RF Rx Instructions: test 3 times daily (DME) pen needle, diabetic [BD Ultra-Fine Gwen Pen Needle] 32 gauge x 5/32 needle See Rx Instructions .ROUTE .MEDSUPPLY Qty: 400 3RF Rx Instructions: 4 times daily Referrals / Follow Up: Thien Baeza MD [Primary Care Provider] - Within 2 Weeks Disposition Disposition (needs filled in before D/C Order can be placed): Acute Care Hospital Charges/Coding Visit Charges Inpatient E&M: 98337 Disch Hosp >30min
--- NOTE | 2024-02-07 16:40 | PN.CARD_ITS ---
Subjective Subjective Patient seen and evaluated Objective Data Vital Signs: Vital Signs Temp Pulse Resp BP Pulse Ox O2 Del Method O2 Flow Rate 98.4 F 65 20 H 114/55 L 94 Room Air 2 02/07/24 08:00 02/07/24 16:00 02/07/24 16:00 02/07/24 16:00 02/07/24 16:00 02/07/24 16:00 02/07/24 07:00 Oxygen Flow Rate (L/min) 2 Oxygen Delivery Method Room Air Weight: 189 lb 6.033 oz Body Mass Index (BMI) 33.5 Intake & Output: Intake and Output for Last 24 Hours 02/05/24 02/06/24 02/07/24 23:59 23:59 23:59 Intake Total 1050 / 1050 1600 / 1600 Output Total 1050 / 1050 Balance 1050 / 1050 550 / 550 Lab / Micro Data 02/07/24 04:45 02/07/24 04:45 Labs: Laboratory Results - last 24 hr 02/06/24 14:56: ESR Cancelled, Total Bilirubin 1.10 H, Direct Bilirubin 0.20, AST 15, ALT 35, Alkaline Phosphatase 70, C-React Prot Ext Range < 2.90, Total Protein 7.1, Albumin 3.3, Globulin 3.8 02/06/24 18:30: ESR 18 02/06/24 20:56: POC Glucose 245 H 02/07/24 04:45: WBC 8.1, RBC 4.18 L, Hgb 12.5, Hct 37.7, MCV 90.2, MCH 29.9, MCHC 33.2, RDW Std Deviation 44.8 H, RDW Coeff of Suni 13.6, Plt Count 154, MPV 11.4, Immature Gran % (Auto) 0.200, Neut % (Auto) 54.5, Lymph % (Auto) 36.6, [place] % (Auto) 7.9, Eos % (Auto) 0.4, Baso % (Auto) 0.4, Absolute Neuts (auto) 4.4, Absolute Lymphs (auto) 2.96, Nucleated RBC % 0, Sodium 137, Potassium 4.2, Chloride 108 H, Carbon Dioxide 22.0, Anion Gap 7, BUN 9, Creatinine 1.09 H, Estim Creat Clear Calc 49.28, Est GFR (MDRD) Af Amer 64, Est GFR (MDRD) Non-Af 53 L, BUN/Creatinine Ratio 8.3 L, Glucose 287 H, Calcium 8.6, Total Bilirubin 1.20 H, AST 17, ALT 29, Alkaline Phosphatase 54, Total Protein 6.2 L, Albumin 3.0 L, Globulin 3.2, Albumin/Globulin Ratio 0.9, Triglycerides 325 H, Cholesterol 147, LDL Cholesterol 37, VLDL Cholesterol 65 H, HDL Cholesterol 45 02/07/24 07:55: POC Glucose 268 H 02/07/24 11:00: Fluid Source Cancelled, Fluid Color Cancelled, Fluid Appearance Cancelled, Fluid WBC Cancelled, Fluid RBC Cancelled, Fluid Tot Cell Count Cancelled, Fluid Neutrophils Cancelled, Fluid Lymphocytes Cancelled, Fluid Monocytes Cancelled, Fluid Plasma Cells Cancelled, Fluid Macrophages Cancelled, Fld Mesothelial Cells Cancelled, Fluid Other Cells Cancelled, Fl Pathologist Comment Cancelled, Fluid Comment 2 Cancelled, CSF Appearance CLEAR, CSF Color COLORLESS, CSF WBC 2, CSF RBC 140 H, CSF Cell Count Tube # 3, CSF Total Cell Counted Not Reportable, CSF Neutrophils 24 H, CSF Lymphocytes 49, CSF Monocytes 27, CSF Comment May follow, CSF Glucose 150 H 02/07/24 11:05: Fluid Glucose Cancelled 02/07/24 11:46: POC Glucose 192 H Micro: Microbiology 02/07/24 11:00 Csf, Spinal Fluid Gram Stain - Final Cardiology Labs/Tests 02/06/24 14:56: Total Bilirubin 1.10 H, Direct Bilirubin 0.20 02/07/24 04:45: WBC 8.1, RBC 4.18 L, Hgb 12.5, Hct 37.7, MCV 90.2, MCH 29.9, MCHC 33.2, Plt Count 154, MPV 11.4, Immature Gran % (Auto) 0.200, Neut % (Auto) 54.5, Lymph % (Auto) 36.6, [place] % (Auto) 7.9, Eos % (Auto) 0.4, Baso % (Auto) 0.4, Absolute Neuts (auto) 4.4, Nucleated RBC % 0, Sodium 137, Potassium 4.2, C hloride 108 H, Carbon Dioxide 22.0, Anion Gap 7, BUN 9, Creatinine 1.09 H, Est GFR (MDRD) Af Amer 64, Est GFR (MDRD) Non-Af 53 L, BUN/Creatinine Ratio 8.3 L, G lucose 287 H, Calcium 8.6, Total Bilirubin 1.20 H, Triglycerides 325 H, Cholesterol 147, LDL Cholesterol 37, VLDL Cholesterol 65 H, HDL Cholesterol 45 Rhythm: EKG: ECHO: Stress Test: Cardiac Cath: PCI: CT Surgery: Holter monitor: EPS: PPM: CXR: Chest CT Scan: Radiography Diagnostic Testing: Radiology Impression Brain MRI 02/06/24 13:57 IMPRESSION: 1. Mild involutional change and chronic microvascular deep white matter disease. 2. Focal areas remote lacunar infarct in the centrum semiovale bilaterally. 3. No mass, hemorrhage, or acute territorial infarct. Electronically Signed: Hero Rodriguez MD at 20:48 EDT , Brain CT 02/07/24 00:42 IMPRESSION: No CT evidence of acute intracranial hemorrhage or injury. Mild senescent changes with atherosclerosis compatible with age. Electronically Signed: Dave Singleton MD at 2:40 EDT , Brain CT 02/07/24 12:06 IMPRESSION: Chronic involutional changes of the brain. Tiny lacuna in the left thalamus. This is unchanged. Electronically Signed: Tj Vela MD at 12:23 EDT , Physical Exam Const alert, oriented x3 and no apparent distress General Appearance: cooperative HEENT hearing grossly normal bilaterally Head and Scalp: atraumatic Eyes EOMs intact bilaterally Neck General: normal visual inspection Chest inspection of chest normal and palpation of chest normal Resp normal respiratory effort Auscultation: clear to auscultation bilaterally Cardio regular rate, regular rhythm, S1 normal heart sound and S2 normal heart sound Jugular Venous Distention: JVD GI normal to inspection, nondistended, normoactive bowel sounds Extremity normal capillary refill and no pedal edema Peripheral Pulses: Yes pulses 2+ throughout and femoral pulses present Skin no rashes or lesions noted Neuro oriented x3 and CN's II-XII intact bilaterally Psych Appearance: grossly normal and appropriate Assessment & Plan Assessment/Plan (1) Bradycardia, severe sinus: PLAN: Patient had symptomatic bradycardia. Her episodes happened when she was having severe pain and it is possible that there was a vasovagal component to this bradycardia. Will continue to hold the metoprolol. Will recommend different agents for treatment of hypertension. Will sign off for now. Please reconsult as necessary.
[2024-02-07 17:15] LABS: Bedside Glucose 277 mg/dL (74-106)
[2024-02-11 08:12] LABS: Amylase Body Fluid < 3 U/L (.)
[2024-02-12 00:07] LABS: HSV 1 By PCR Negative (Negative); HSV 2 By PCR Negative (Negative)
[2024-02-12 14:54] LABS: Pathologist Review May follow
== END 2024-02-07 17:40 | disposition short-term general hospital (02) | DRG 65 ==
LOC: ED 13:49 → ICU 14:39
PROVIDERS: Admitting Provider Internal Medicine; Emergency Provider Emergency Medicine; PCP Family Medicine; Visit Provider Internal Medicine
DX: I63.9 Cerebral infarction, unspecified (principal); R41.4 Neurologic neglect syndrome; R56.9 Unspecified convulsions; E11.65 Type 2 diabetes mellitus with hyperglycemia; I10 Essential (primary) hypertension; E66.9 Obesity, unspecified; R47.01 Aphasia; Z79.4 Long term (current) use of insulin; E78.00 Pure hypercholesterolemia, unspecified; I25.10 Atherosclerotic heart disease of native coronary artery without angina pectoris; R00.1 Bradycardia, unspecified; I25.2 Old myocardial infarction; R47.1 Dysarthria and anarthria; R47.81 Slurred speech; R55 Syncope and collapse; R29.701 NIHSS score 1; Z68.33 Body mass index [BMI] 33.0-33.9, adult; Z95.1 Presence of aortocoronary bypass graft; Z95.5 Presence of coronary angioplasty implant and graft; Z79.82 Long term (current) use of aspirin; Z79.85 Long-term (current) use of injectable non-insulin antidiabetic drugs; Z79.899 Other long term (current) drug therapy
CPT/HCPCS: 62328; 70450; 70496; 70498; 70551; 71045; 80048; 80053; 80061; 80076; 82150; 82945; 82962; 83036; 83735; 84157; 84443; 84484; 85025; 85610; 85652; 85730; 86140; 87070; 87205; 87529; 88108; 88313; 89050; 89051; 92523; 92610; 93005; 93306; 95819; 97802; 97803; 99285; J7030; J7050; Q9967; A4216; C8929; J2405

== ENCOUNTER → 2024-02-19 | Outpatient (CLI) | payer MEDICARE, SELFPAY ==
[2024-02-19 15:05] LABS: Absolute Lymphocyte Count 2.89 X10^3/uL (0.83-4.51); Absolute Neutrophil Count 3.6 X10^3/uL (2.0-7.7); Basophil# 0.07 X10^3/uL; Basophil% 0.9 % (0-1); Eosinophil# 0.08 X10^3/uL; Eosinophils% 1.1 % (0-5); Hemoglobin 13.6 g/dL (12.0-15.0); Lymphocyte # 2.89 X10^3/ul (0.83-4.51); Mean Corp Hgb Conc 32.4 g/dL (32-36); Mean Corpuscular Hgb 29.8 pg (27.0-32.0); Mean Corpuscular Volume 91.9 fL (81-99); Mean Platelet Vol. 12.5 fl (6.2-12.0); Monocyte# 0.75 X10^3/uL; Monocyte% 10.1 % (0-10); NRBC Flagged by Analyzer 0 % (0-5); Neutrophil % 48.6 % (47-70); Platelet Count 225 K/mm3 (150-450); RBC Distribution Width CV 13.9 % (11.6-14.6); RBC Distribution Width SD 46.8 fl (35.1-43.9); Red Blood Count 4.57 M/mm3 (4.2-5.4); White Blood Count 7.4 K/mm3 (4.4-11.0)
[2024-02-19 15:26] LABS: Anion Gap 5 (5-15); BUN 25 mg/dL (7-18); Calcium,Total 9.5 mg/dL (8.5-10.1); Chloride 107 mmol/L (98-107); Cholesterol 117 mg/dL (200); Creatinine, Serum 0.96 mg/dL (0.55-1.02); EST Glomerular Filtration Rate 61 mL/min (>60); Est Glom Filt Rate - Afr Amer 74 mL/min (>60); Glucose 250 mg/dL (74-106); High Density Lipoprotein 54 mg/dL; Potassium 4.3 mmol/L (3.5-5.1); Sodium Level 136 mmol/L (136-145); Triglycerides 176 mg/dL; Very Low Density Lipoprotein 35 mg/dL (5-40)
[2024-02-22 04:10] LABS: KEPPRA (LEVETIRACETAM) 67.3 ug/mL (10.0-40.0)
== END | disposition home or self-care (01) ==
LOC: MTLAB 12:47
PROVIDERS: PCP Family Medicine; Referring Provider Family Medicine; Visit Provider Family Medicine
DX: E11.9 Type 2 diabetes mellitus without complications (principal); Z87.898 Personal history of other specified conditions
CPT/HCPCS: 36415; 80048; 80061; 80177; 85025

== ENCOUNTER → 2024-08-19 | Outpatient (CLI) | payer MEDICARE, SELFPAY ==
[2024-08-19 18:05] LABS: Protein, Urine (Random) < 6.0 mg/dL (<11.9); Protein:Creat Ratio 77 mg/g CRE (0-200)
[2024-08-19 18:26] LABS: ALB/GLOB Ratio 1.1 RATIO (0.9-2.4); AST(SGOT) 32 U/L (15-37); Alanine Aminotransfer ALT/SGPT 59 U/L (13-56); Albumin, Serum 3.9 g/dL (3.2-5.0); Alkaline Phosphatase 54 U/L (45-117); Anion Gap 9 (5-15); BUN 13 mg/dL (7-18); BUN/Creat Ratio 14.3 RATIO (10-20); Calcium,Total 9.6 mg/dL (8.5-10.1); Chloride 106 mmol/L (98-107); Cholesterol 149 mg/dL (200); Creatinine, Serum 0.91 mg/dL (0.55-1.02); EST Glomerular Filtration Rate 65 mL/min (>60); Est Glom Filt Rate - Afr Amer 79 mL/min (>60); Globulin 3.7 g/dL (2.2-4.2); Glucose 107 mg/dL (74-106); High Density Lipoprotein 71 mg/dL; Potassium 3.8 mmol/L (3.5-5.1); Protein, Total 7.6 g/dL (6.4-8.2); Sodium Level 137 mmol/L (136-145); Triglycerides 166 mg/dL; Very Low Density Lipoprotein 33 mg/dL (5-40)
== END | disposition home or self-care (01) ==
LOC: MFPLAB 15:37
PROVIDERS: PCP Family Medicine; Referring Provider Family Medicine; Visit Provider Family Medicine
DX: E11.9 Type 2 diabetes mellitus without complications (principal)
CPT/HCPCS: 36415; 80053; 80061; 82570; 84156

== ENCOUNTER → 2025-02-11 | Outpatient (CLI) | payer MEDICARE, SELFPAY ==
--- NOTE | 2025-02-11 11:53 | BI_ITS ---
EXAM: SCRN MAMM (CAD)W/RAMIRO BILAT DATE: 02/11/2025 CLINICAL HISTORY: F, Age 69 y/o , SCREENING No family history. Stable chronic bilateral nipple inversion. TECHNIQUE: SCRN MAMM (CAD)W/RAMIRO BILAT COMPARISON: Prior exam(s) dated May 21, 2022.. FINDINGS: TISSUE DENSITY: The breasts are almost entirely fatty. Bilateral Breast Mammographic Findings: No significant masses, calcifications or other abnormalities are identified. No suspicious masses, areas of developing architectural distortion, or suspicious calcifications. There has been no significant interval change. BI/SCRN MAMM (CAD)W/RAMIRO BILAT IMPRESSION: Stable examination. OVERALL FINAL ASSESSMENT BI-RADS 1: NEGATIVE. RECOMMENDATION: Routine annual follow-up in 1 Year A letter with findings and recommendations will be mailed to the patient. Reading Location: [id number]
== END | disposition home or self-care (01) ==
LOC: OPBI 11:52
PROVIDERS: PCP Family Medicine; Referring Provider Family Medicine; Visit Provider Family Medicine
DX: Z12.31 Encounter for screening mammogram for malignant neoplasm of breast (principal)
CPT/HCPCS: 77063; 77067